=== PATIENT | male | born 1950 | race Caucasian/White ===

== ENCOUNTER 2017-06-17 17:17 | Emergency (ER) | payer OTHER, MEDICARE ==
[2017-06-17 17:50] VITALS: TEMP 98.4
[2017-06-17] MEDS ORDERED: Tetanus/Diphtheria Toxoids 0.5 ml Syringe IM ONE ×2 (18:20→18:49)
--- NOTE | 2017-06-17 18:39 | C.PDOC ---
History Of Present Illness 66 y/o male presents to ED for evaluation on left thumb laceration sustained with knife [employer]. Patient is on blood thinner and noticed bleeding unable to stop. Patient denies obvious deformity, weakness, sensory or vascular deficits to injured finger, or any other complaints at this time. Time Seen by Provider: 06/17/17 18:03 Chief Complaint (Nursing): Abnormal Skin Integrity History Per: Patient History/Exam Limitations: no limitations Onset/Duration Of Symptoms: Hrs Current Symptoms Are (Timing): Still Present Past Medical History Reviewed: Historical Data, Nursing Documentation, Vital Signs Vital Signs: Last Vital Signs Temp 98.4 F 06/17/17 17:48 Pulse 75 06/17/17 18:55 Resp 18 06/17/17 18:55 BP 148/75 06/17/17 18:55 Pulse Ox 97 06/17/17 18:55 - Medical History PMH: Diabetes, HTN, Chronic Kidney Disease Surgical History: Coronary Stent (x2) - [facility] Procedures CORONAR ARTERIOGR-2 CATH (07/23/03) LEFT HEART CARDIAC CATH (07/23/03) LT HEART ANGIOCARDIOGRAM (07/23/03) Family History: States: No Known Family Hx - Social History Hx Alcohol Use: No Hx Substance Use: No - Immunization History Hx Tetanus Toxoid Vaccination: No Hx Influenza Vaccination: No Hx Pneumococcal Vaccination: No Review Of Systems Except As Marked, All Systems Reviewed And Found Negative. Constitutional: Negative for: Fever, Chills Musculoskeletal: Positive for: Hand Pain Skin: Negative for: Rash Neurological: Negative for: Weakness, Numbness Physical Exam - Physical Exam Appears: Well, Non-toxic, No Acute Distress Skin: Normal Color, Warm, Dry, No Rash Extremity: Normal ROM (Left hand), No Tenderness, Capillary Refill (<2 seconds) , Other (superficial laceration on tip of left thumb, no bleeding noted. No defomrity. FAROM, no neurovascular deficits.) Extremity: Bilateral: Normal ROM Pulses: Left Radial: Normal, Right Radial: Normal Neurological/Psych: Oriented x3, Normal Speech, Normal Motor, Normal Sensation, Normal Reflexes ED Course And Treatment O2 Sat by Pulse Oximetry: 99 (RA) Pulse Ox Interpretation: Normal Progress Note: On re-evaluation, pt is afebrile, hemodynamicaly stable. non- toxic. left hand: superificial laceration repaired with skin adhesive, no wound bleeding. FAROM, no neurovascular deficits. tetanus given. Pt advised on wound care. ref. to f/u with PMD in 2 days for re-eavl. return if any new changes. Laceration - Laceration Repair Left thumb Wound Length (In cm): 1cm Description Of Wound: Linear Wound Examination: Irrigated With Saline, No FB With Wound Exploration, No Tendon Injury With Wound Exploration Wound Closure: Steri Strips, Skin Glue Wound Complexity: Simple Disposition Counseled Patient/Family Regarding: Diagnosis, Need For Followup, Rx Given - Disposition Referrals: [facility] [Outside] Disposition: HOME/ ROUTINE Disposition Time: 18:10 Condition: STABLE Additional Instructions: KEEP WOUND CLEAN, DRY FOR 2-3 DAYS fOLLOW UP WITH PMD IN 2 DAYS FOR RE-EVALUATION. Instructions: Finger Laceration (ED), Skin Adhesive Care (ED) Forms: [employer] (Swedish) - Clinical Impression Clinical Impression: Laceration - Scribe Statement The provider has reviewed the documentation as recorded by the Peter Staton All medical record entries made by the Sofiyaiblj were at my direction and personally dictated by me. I have reviewed the chart and agree that the record accurately reflects my personal performance of the history, physical exam, medical decision making, and the department course for this patient. I have also personally directed, reviewed, and agree with the discharge instructions and disposition.
[2017-06-17 18:55] VITALS: BP 148/75; PULSE 75; RESP 18
[2017-06-17 19:44] VITALS: O2SAT 99
== END 2017-06-17 18:55 | disposition home or self-care (01) ==
LOC: C.ER 17:17
DX: S61.012A Laceration without foreign body of left thumb without damage to nail, initial encounter (principal); W26.0XXA Contact with knife, initial encounter; Y93.9 Activity, unspecified; Y92.009 Unspecified place in unspecified non-institutional (private) residence as the place of occurrence of the external cause

== ENCOUNTER 2017-09-20 02:22 | Inpatient (IN) | payer OTHER, MEDICARE ==
--- NOTE | 2017-09-20 02:38 | C.PDOC ---
History Of Present Illness pt presents with worsening dyspnea over the last 3 days, especially tonight. Speaking in 3-4 word sentences . As per ems, pt had audible wheezing. Denies any chest pain, No f/c/n/v Time Seen by Provider: 09/20/17 02:37 Chief Complaint (Nursing): Respiratory Distress History Per: Patient History/Exam Limitations: no limitations Onset/Duration Of Symptoms: Hrs Current Symptoms Are (Timing): Worse Associated Symptoms: Dyspnea Preciptating Factors: None Severity: Severe Pain Scale Rating Of: 7 Recent travel outside of the [place]: No Additional History Per: Patient - Asthma History Medication Use: Never Rescue Medications: See Home Medication List Control Medications: See Home Medication List Past Medical History Reviewed: Historical Data, Nursing Documentation, Vital Signs Vital Signs: Last Vital Signs Temp 98.4 F 09/20/17 02:28 Pulse 70 09/20/17 05:46 Resp 20 09/20/17 05:46 BP 181/85 H 09/20/17 05:46 Pulse Ox 100 09/20/17 05:46 - Medical History PMH: Diabetes, HTN, Chronic Kidney Disease Surgical History: Coronary Stent (x2) - [facility] Procedures CORONAR ARTERIOGR-2 CATH (07/23/03) LEFT HEART CARDIAC CATH (07/23/03) LT HEART ANGIOCARDIOGRAM (07/23/03) Family History: States: No Known Family Hx - Social History Hx Alcohol Use: No Hx Substance Use: No - Immunization History Hx Tetanus Toxoid Vaccination: Yes Hx Influenza Vaccination: No Hx Pneumococcal Vaccination: No Review Of Systems Constitutional: Negative for: Fever, Chills Eyes: Negative for: Vision Change ENT: Negative for: Throat Pain Cardiovascular: Negative for: Chest Pain, Palpitations Respiratory: Positive for: Shortness of Breath, Wheezing Gastrointestinal: Negative for: Nausea, Vomiting, Abdominal Pain Genitourinary: Negative for: Dysuria Musculoskeletal: Negative for: Back Pain Skin: Negative for: Rash Neurological: Negative for: Weakness Psych: Negative for: Anxiety Physical Exam - Physical Exam Appears: Non-toxic, In Acute Distress Skin: Warm, Dry Head: Normacephalic Eye(s): bilateral: Normal Inspection Oral Mucosa: Moist Neck: Trachea Midline, Supple Chest: Symmetrical Cardiovascular: Rhythm Regular Respiratory: Decreased Breath Sounds, Rales, No Rhonchi, Wheezing Gastrointestinal/Abdominal: Soft, No Tenderness, Distention, No Rebound Back: No CVA Tenderness Extremity: No Tenderness, Pedal Edema Extremity: Bilateral: Atraumatic, Normal Color And Temperature, Normal ROM Pulses: Left Dorsalis Pedis: Normal, Right Dorsalis Pedis: Normal Neurological/Psych: Oriented x3, Normal Speech, Normal Cognition Gait: Steady ED Course And Treatment - Laboratory Results Result Diagrams: 09/20/17 03:07 09/20/17 03:07 ECG: Interpreted By Me, Viewed By Me ECG Rhythm: Sinus Rhythm (64), 1st Degree HB, Nonspecific Changes (old inf mi) O2 Sat by Pulse Oximetry: 96 Pulse Ox Interpretation: Normal - Radiology CXR: Interpreted by Me, Viewed By Me CXR Interpretation: Yes: Cardiomegaly, Other (chf). No: Infiltrates, Fracture Critical Care Time - Critical Care Note Total Time (in mins): 30 Documented critical care: time excludes all time spent performing seperately billable procedures. Disposition Discussed With : Alexandru Dimas Comment: accepted the pt on his service and took over the care at5:30 AM Doctor Will See Patient In The: ED Counseled Patient/Family Regarding: Studies Performed, Diagnosis - Disposition Disposition: HOSPITALIZED Disposition Time: 02:38 Condition: FAIR Forms: [employer] (Ukrainian) - POA Present On Arrival: Poor Glycemic Control - Clinical Impression Clinical Impression: Dyspnea, Congestive heart failure Decision To Admit - Pt Status Changed To: Hospital Disposition Of: Inpatient - Admit Certification Admit to Inpatient:: After my assessment, the patient will require hospitalization for at least two midnights. This is because of the severity of symptoms shown, intensity of services needed, and/or the medical risk in this patient being treated as an outpatient. - InPatient: Physician Admission Certification:: After my assessment, the patient will require hospitalization for at least two midnights. This is because of the severity of symptoms shown, intensity of services needed, and/or the medical risk in this patient being treated as an outpatient. - . Bed Request Type: Telemetry Admitting Physician: Alexandru Dimas Patient Diagnosis: Dyspnea, Congestive heart failure
[2017-09-20] MEDS ORDERED: Albuterol-Ipratrop 3 mg / 0.5 (3 ml) UD ONE (02:58)
[2017-09-20] MEDS: Albuterol-Ipratrop 3 mg / 0.5 (3 ml) UD IH SCH ×3 (03:00→03:31)
[2017-09-20 03:13] LABS: BASO % 0.6 % (0.0-2.0); EOS # 0.3 K/uL (0.0-0.7); EOS % 4.6 % (0.0-4.0); HEMATOCRIT 31.2 % (35.0-51.0); LYMPH % 14.7 % (20.0-40.0); MEAN CELL VOLUME 90.1 fL (80.0-94.0); MEAN CORPUSCULAR HEMOGLOBIN 30.3 pg (27.0-31.0); MEAN CORPUSCULAR HGB CONC 33.6 g/dL (33.0-37.0); MEAN PLATELET VOLUME 9.1 fL (7.2-11.7); MONO # 0.7 K/uL (0.0-0.8); MONO % 11.2 % (0.0-10.0); RED CELL DISTRIBUTION WIDTH 14.3 % (11.5-14.5); WHITE BLOOD COUNT 6.6 K/uL (4.8-10.8)
[2017-09-20 03:25] LABS: ABG ALLEN TEST POS; ARTERIAL BLOOD GAS MODE BiPAP; DRAW SITE RR
[2017-09-20 03:30] LABS: ALB/GLOB RATIO 1.3 (1.0-2.1); ALKALINE PHOSPHATASE 51 U/L (38-126); ALT/SGPT 45 U/L (21-72); AST/SGOT 52 U/L (17-59); BILIRUBIN,TOTAL 0.7 mg/dL (0.2-1.3); BLOOD UREA NITROGEN 53 mg/dL (9-20); CALCIUM 8.6 mg/dl (8.6-10.4); CARBON DIOXIDE 25 mmol/L (22-30); CHLORIDE 108 mmol/L (98-107); GFR AFRICAN-AMERICAN 30; GLUCOSE,RANDOM 143 mg/dL (75-110); POTASSIUM 4.2 mmol/L (3.6-5.2); SODIUM 141 mmol/L (132-148); TOTAL PROTEIN 6.7 g/dL (6.3-8.3)
--- NOTE | 2017-09-20 09:24 | CP.PCM.CON ---
History of Present Illness - History of Present Illness History of Present Illness: pt is seen and examined, full consult is dictated # [id number] 1. ckd-3 , most likely sec to DM nephropathy, can't r/o htn nephrosclerosis 2. Sob, sec to chf and fluid over load 3. htn 4. r/o candelaria 5. dm, under control increase lasix 80 mg iv bid restrict fluids to 100 ml/day for now check echo for lv EF bmp in am check pth intact level Past Patient History - Past Social History Smoking Status: Former Smoker - CARDIAC Hx Hypertension: Yes - RENAL Hx Chronic Kidney Disease: Yes - ENDOCRINE/METABOLIC Hx Endocrine Disorders: Yes Hx Diabetes Mellitus Type 2: Yes - PSYCHIATRIC Hx Substance Use: No - SURGICAL HISTORY Hx Coronary Stent: Yes (x2) - ANESTHESIA Hx Anesthesia: Yes Hx Anesthesia Reactions: No Meds Allergies/Adverse Reactions: Allergies Allergy/AdvReac Type Severity Reaction Status Date / Time No Known Allergies Allergy Verified 09/20/17 02:33 - Medications Medications: Current Medications Amlodipine Besylate (Norvasc) 5 mg PO DAILY [facility] Carvedilol (Coreg) 25 mg PO DAILY [facility] Chlorthalidone (Hygroton) 25 mg PO DAILY [facility] Clopidogrel Bisulfate (Plavix) 75 mg PO DAILY [facility] Furosemide (Lasix) 40 mg IVP DAILY [facility] Heparin Sodium (Porcine) (Heparin) 5,000 units SC Q12 [facility] Heparin Sodium (Porcine) (Heparin) 5,000 units SC Q8 [facility] Home Med (Cholecalciferol (Vitamin D3) [Vitamin D3]) 50,000 unit PO WM [facility] Home Med (Ezetimibe/Simvastatin [Vytorin 10-40 Mg Tablet]) 1 tab PO DAILY [facility] Home Med (Fenofibrate [Triglide]) 160 mg PO DAILY [facility] Home Med (Omeprazole [Omeprazole]) 20 mg PO DAILY [facility] Home Med (Valsartan [Valsartan]) 320 mg PO DAILY [facility] Insulin Glargine (Lantus) 22 unit SC BID [facility] Sitagliptin Phosphate (Januvia) 50 mg PO DAILY [facility] Results - Vital Signs Recent Vital Signs: Last Vital Signs Temp 98.4 F 09/20/17 02:28 Pulse 72 09/20/17 09:12 Resp 13 09/20/17 06:27 BP 164/68 H 09/20/17 09:12 Pulse Ox 100 09/20/17 06:27 - Labs Result Diagrams: 09/20/17 03:07 09/20/17 11:17 Labs: Laboratory Results - last 24 hr 09/20/17 09/20/17 09/20/17 03:07 03:07 03:07 WBC 6.6 RBC 3.46 L Hgb 10.5 L Hct 31.2 L MCV 90.1 MCH 30.3 MCHC 33.6 RDW 14.3 Plt Count 169 MPV 9.1 Neut % (Auto) 68.9 Lymph % (Auto) 14.7 L Hardeman % (Auto) 11.2 H Eos % (Auto) 4.6 H Baso % (Auto) 0.6 Neut # 4.6 Lymph # 1.0 Hardeman # 0.7 Eos # 0.3 Baso # 0.0 PT 11.2 INR 1.0 APTT 26 Puncture Site pCO2 pO2 HCO3 ABG pH ABG Total CO2 ABG O2 Saturation ABG Base Excess Miguel Angel Test ABG Potassium A-a O2 Difference Respiratory Index Glucose Lactate Vent Mode FiO2 Inspiratory BiPAP Expiratory BiPAP Sodium 141 Potassium 4.2 Chloride 108 H Carbon Dioxide 25 Anion Gap 13 BUN 53 H Creatinine 2.6 H Est GFR ( Amer) 30 Est GFR (Non-Af Amer) 25 Random Glucose 143 H Calcium 8.6 Total Bilirubin 0.7 AST 52 ALT 45 Alkaline Phosphatase 51 Troponin I 0.0440 NT-Pro-B Natriuret Pep 2320 H Total Protein 6.7 Albumin 3.8 Globulin 2.9 Albumin/Globulin Ratio 1.3 Arterial Blood Potassium Serum Ketones Negative 09/20/17 03:20 WBC RBC Hgb Hct MCV MCH MCHC RDW Plt Count MPV Neut % (Auto) Lymph % (Auto) Hardeman % (Auto) Eos % (Auto) Baso % (Auto) Neut # Lymph # Hardeman # Eos # Baso # PT INR APTT Puncture Site Rr pCO2 47 H pO2 286 H HCO3 25.5 ABG pH 7.36 ABG Total CO2 28.0 ABG O2 Saturation 99.7 H ABG Base Excess 0.6 Miguel Angel Test Pos ABG Potassium 4.8 A-a O2 Difference 12.0 Respiratory Index 0 Glucose 155 H Lactate 0.6 L Vent Mode Bipap FiO2 50.0 Inspiratory BiPAP 12 Expiratory BiPAP 5 Sodium 145.0 Potassium Chloride 119.0 H Carbon Dioxide Anion Gap BUN Creatinine Est GFR ( Amer) Est GFR (Non-Af Amer) Random Glucose Calcium Total Bilirubin AST ALT Alkaline Phosphatase Troponin I NT-Pro-B Natriuret Pep Total Protein Albumin Globulin Albumin/Globulin Ratio Arterial Blood Potassium 4.8 Serum Ketones
--- NOTE | 2017-09-20 09:29 | CP.PCM.HP ---
History of Present Illness - History of Present Illness History of Present Illness: c/o SOB HPI: 66 yrs old male with HTN, DM, CAD s/p stent, CRI came to ED with increasing sob for almost one week duration. Unable to walk now more than half block, unable to claim, increasing leg swelling. some wt gain noted. for 4 days he not able to sleep well and waking up and unable to lye flat. orthopnea and PND noted. he also c/o some cough and mild wheezing and took antibiotic and cough meds. Now he has no cough and no wheezing no fever noted Pt seen by cardiology 3 months ago, he had stress test 2 yrs ago. also has some renal failure being seen by Nephro Present on Admission - Present on Admission Any Indicators Present on Admission: No History of DVT/PE: No History of Uncontrolled Diabetes: No Urinary Catheter: No Decubitus Ulcer Present: No Review of Systems - Review of Systems All systems: reviewed and no additional remarkable complaints except - Constitutional Constitutional: Fatigue, Snoring, Weight Gain, Weakness - Cardiovascular Cardiovascular: Dyspnea, Dyspnea on Exertion, Edema, Leg Edema, Paroxysmal Nocturnal Dyspnea - Respiratory Respiratory: Dyspnea on Exertion, Snoring - Genitourinary Genitourinary: Other Additional comments: less urine out put - Reproductive: Male Reproductive:Male: As Per HPI - Musculoskeletal Musculoskeletal: As Per HPI - Integumentary Integumentary: As Per HPI - Neurological Neurological: Other Past Patient History - Past Social History Smoking Status: Former Smoker - CARDIAC Hx Hypertension: Yes - RENAL Hx Chronic Kidney Disease: Yes - ENDOCRINE/METABOLIC Hx Endocrine Disorders: Yes Hx Diabetes Mellitus Type 2: Yes - PSYCHIATRIC Hx Substance Use: No - SURGICAL HISTORY Hx Coronary Stent: Yes (x2) - ANESTHESIA Hx Anesthesia: Yes Hx Anesthesia Reactions: No Meds Allergies/Adverse Reactions: Allergies Allergy/AdvReac Type Severity Reaction Status Date / Time No Known Allergies Allergy Verified 09/20/17 02:33 Physical Exam - Head Exam Head Exam: ATRAUMATIC - Cardiovascular Exam Additional comments: mild wheezing noted mild congestion noted regular hs - GI/Abdominal Exam Additional comments: non tender abd Results - Vital Signs Recent Vital Signs: Last Vital Signs Temp 98.4 F 09/20/17 02:28 Pulse 72 09/20/17 09:12 Resp 13 09/20/17 06:27 BP 164/68 H 09/20/17 09:12 Pulse Ox 100 09/20/17 06:27 - Labs Result Diagrams: 09/20/17 03:07 09/20/17 03:07 Labs: Laboratory Results - last 24 hr 09/20/17 09/20/17 09/20/17 03:07 03:07 03:07 WBC 6.6 RBC 3.46 L Hgb 10.5 L Hct 31.2 L MCV 90.1 MCH 30.3 MCHC 33.6 RDW 14.3 Plt Count 169 MPV 9.1 Neut % (Auto) 68.9 Lymph % (Auto) 14.7 L Callahan % (Auto) 11.2 H Eos % (Auto) 4.6 H Baso % (Auto) 0.6 Neut # 4.6 Lymph # 1.0 Callahan # 0.7 Eos # 0.3 Baso # 0.0 PT 11.2 INR 1.0 APTT 26 Puncture Site pCO2 pO2 HCO3 ABG pH ABG Total CO2 ABG O2 Saturation ABG Base Excess Miguel Angel Test ABG Potassium A-a O2 Difference Respiratory Index Glucose Lactate Vent Mode FiO2 Inspiratory BiPAP Expiratory BiPAP Sodium 141 Potassium 4.2 Chloride 108 H Carbon Dioxide 25 Anion Gap 13 BUN 53 H Creatinine 2.6 H Est GFR ( Amer) 30 Est GFR (Non-Af Amer) 25 Random Glucose 143 H Calcium 8.6 Total Bilirubin 0.7 AST 52 ALT 45 Alkaline Phosphatase 51 Troponin I 0.0440 NT-Pro-B Natriuret Pep 2320 H Total Protein 6.7 Albumin 3.8 Globulin 2.9 Albumin/Globulin Ratio 1.3 Arterial Blood Potassium Serum Ketones Negative 09/20/17 03:20 WBC RBC Hgb Hct MCV MCH MCHC RDW Plt Count MPV Neut % (Auto) Lymph % (Auto) Callahan % (Auto) Eos % (Auto) Baso % (Auto) Neut # Lymph # Callahan # Eos # Baso # PT INR APTT Puncture Site Rr pCO2 47 H pO2 286 H HCO3 25.5 ABG pH 7.36 ABG Total CO2 28.0 ABG O2 Saturation 99.7 H ABG Base Excess 0.6 Miguel Angel Test Pos ABG Potassium 4.8 A-a O2 Difference 12.0 Respiratory Index 0 Glucose 155 H Lactate 0.6 L Vent Mode Bipap FiO2 50.0 Inspiratory BiPAP 12 Expiratory BiPAP 5 Sodium 145.0 Potassium Chloride 119.0 H Carbon Dioxide Anion Gap BUN Creatinine Est GFR ( Amer) Est GFR (Non-Af Amer) Random Glucose Calcium Total Bilirubin AST ALT Alkaline Phosphatase Troponin I NT-Pro-B Natriuret Pep Total Protein Albumin Globulin Albumin/Globulin Ratio Arterial Blood Potassium 4.8 Serum Ketones Assessment & Plan (1) Heart failure, chronic, with acute decompensation Assessment and Plan: mostly pt with decom chf CAD will need lasix cardiac enzymes renal and cardilogy eval echo will need sleep eval Status: Acute (2) Chronic renal failure, stage 4 (severe) Assessment and Plan: renal consult Status: Acute (3) Pedal edema Status: Acute (4) Central sleep apnea Status: Acute (5) DM (diabetes mellitus) type I uncontrolled with renal manifestation Status: Acute
--- NOTE | 2017-09-20 10:11 | RAD ---
PROCEDURE: CHEST RADIOGRAPH, 1 VIEW HISTORY: SOB COMPARISON: Comparison made with prior chest radiograph . FINDINGS: A vague radiopaque tube seen overlying the right medial justina thorax which could be a right IJ Cordis. Clinical correlation recommended. LUNGS: Mild diffuse bilateral infiltrates consistent with pulmonary edema; rule out fluid overload or CHF. Mild bibasilar atelectasis and or developing alveolar-type infiltrates. Suspect small bilateral effusions. PLEURA: As above. No evidence of pneumothorax CARDIOVASCULAR: Cardiomegaly. OSSEOUS STRUCTURES: No significant abnormalities. VISUALIZED UPPER ABDOMEN: Normal. OTHER FINDINGS: None. IMPRESSION: Probable in situ right IJ Cordis. Pulmonary edema with bilateral lower lobe atelectasis and or infiltrates. Suspect small bilateral effusions. Findings could be due to fluid overload or CHF. Clinical correlation recommended.
[2017-09-20] MEDS: (Lantus) Insulin Glargine, Recombinant SC SCH ×2 (10:59→17:41)
[2017-09-20 11:59] LABS: TROPONIN I 0.065 ng/mL (0.00-0.120)
[2017-09-20 12:02] LABS: CALCIUM 8.3 mg/dl (8.6-10.4); POTASSIUM 4.4 mmol/L (3.6-5.2)
[2017-09-20] MEDS: (Novolin R) Insulin Human Regular 100 units/ml vial SC SCH ×3 (12:30→21:48)
--- NOTE | 2017-09-20 13:12 | VASCLAB ---
PROCEDURE: Upper Extremity Venous Duplex Exam HISTORY: dvt PRIORS: None. TECHNIQUE: Bilateral upper extremity, internal jugular, subclavian, axillary, brachial, ulnar, radial, basilic and upper cephalic veins were evaluated. Flow was assessed with color Doppler, compressibility, assessment of phasic flow and augmentation response. Report prepared by Van Benavides, JOSE, RVT FINDINGS: RIGHT: 1. Internal Jugular: 1.1. Compressibility - Fully compressible: Thrombus - None : Flow - Phasic: Augmentation -Normal: Reflux - None. 2. Subclavian: 2.1. Compressibility - Fully compressible: Thrombus - None : Flow - Phasic: Augmentation -Normal: Reflux - None. 3. Axillary: 3.1. Compressibility - Fully compressible: Thrombus - None : Flow - Phasic: Augmentation -Normal: Reflux - None. 4. Brachial: 4.1. Compressibility - Fully compressible: Thrombus - None: Flow - Phasic: Augmentation -Normal: Reflux - None. 5. Ulnar: 5.1. Compressibility - Fully compressible: Thrombus - None: Flow - Phasic: Augmentation -Normal: Reflux - None. 6. Radial: 6.1. Compressibility - Fully compressible: Thrombus - None: Flow - Phasic: Augmentation - Normal: Reflux - None. 7. Cephalic: 7.1. Compressibility - Fully compressible: Thrombus - None: Flow - Phasic: Augmentation -Normal: Reflux - None. 8. Basilic: 8.1. Compressibility - Fully compressible: Thrombus - None: Flow - Phasic: Augmentation -Normal: Reflux - None. LEFT: 1. Internal Jugular: 1.1. Compressibility - Fully compressible: Thrombus - None : Flow - Phasic: Augmentation -Normal: Reflux - None. 2. Subclavian: 2.1. Compressibility - Fully compressible: Thrombus - None : Flow - Phasic: Augmentation -Normal: Reflux - None. 3. Axillary: 3.1. Compressibility - Fully compressible: Thrombus - None : Flow - Phasic: Augmentation -Normal: Reflux - None. 4. Brachial: 4.1. Compressibility - Fully compressible: Thrombus - None: Flow - Phasic: Augmentation -Normal: Reflux - None. 5. Ulnar: 5.1. Compressibility - Fully compressible: Thrombus - None: Flow - Phasic: Augmentation -Normal: Reflux - None. 6. Radial: 6.1. Compressibility - Fully compressible: Thrombus - None: Flow - Phasic: Augmentation - Normal: Reflux - None. 7. Cephalic: 7.1. Compressibility - Fully compressible: Thrombus - None: Flow - Phasic: Augmentation -Normal: Reflux - None. 8. Basilic: 8.1. Compressibility - Fully compressible: Thrombus - None: Flow - Phasic: Augmentation -Normal: Reflux - None. OTHER FINDINGS: Right: None. Left: None. IMPRESSION: Right: No evidence of vein thrombosis of the right upper extremity with excellent venous flow. Normal valve function noted of the right side. Left: No evidence of vein thrombosis of the left upper extremity with excellent venous flow. Normal valve function noted of the left side.
[2017-09-20 16:58] VITALS: RESP 20
[2017-09-20 17:59] LABS: TROPONIN I 0.063 ng/mL (0.00-0.120)
[2017-09-20 18:15] LABS: RBC URINE < 1 /hpf (0-3); URINE BILIRUBIN NEGATIVE (NEGATIVE); URINE BLOOD NEGATIVE (NEGATIVE); URINE COLOR Colorless (YELLOW); URINE GLUCOSE (UA) NORMAL (Normal); URINE KETONE NEGATIVE (NEGATIVE); URINE LEUKOCYTE ESTERASE NEG Leu/uL (Negative); URINE PROTEIN 2+ mg/dL (NEGATIVE); URINE UROBILINOGEN NORMAL mg/dL (0.2-1.0); WBC URINE < 1 /hpf (0-5)
--- NOTE | 2017-09-21 02:38 | CON ---
RENAL CONSULTATION LOCATION: Room #663, bed A. REQUESTED BY: Alexandru Dimas MD REASON FOR CONSULTATION: Shortness of breath, chronic kidney disease for further evaluation. HISTORY OF PRESENT ILLNESS: Mr. Tubbs is a 66-year-old elderly obese [place] male with a past medical history significant for longstanding hypertension; diabetes; chronic kidney disease stage III with a baseline creatinine, about 2.5 to 3 proteinuria; hyperlipidemia; coronary artery disease, status post stents in the past; who was brought in by the family with chief complaints of worsening dyspnea for last 3 days. As per the patient, he was feeling short of breath for the last few days and not feeling well yesterday which that was and the family decided to bring him to the hospital last night and also had difficulty in speaking even 3 to 4 sentences at a time. As per the patient, he was feeling short of breath in the middle of the night while sleeping, suddenly he gets up and gasping for air and also complains of snoring. Denies any chest pain. Denies any palpitations. Denies any fever or cough. Denies any nausea, vomiting or diarrhea. The patient does complain of swelling for a long time, on Lasix at home. Dyspnea on exertion also present. PAST MEDICAL HISTORY: Significant for longstanding hypertension, diabetes, hyperlipidemia, proteinuria, chronic kidney disease, coronary artery disease, status post fall and injury to the right knee. PAST SURGICAL HISTORY: Status post coronary stents and status post cardiac cath on 07/23/2003. ALLERGIES: NO KNOWN DRUG ALLERGIES. SOCIAL HISTORY: No smoking, no alcohol, no drugs. FAMILY HISTORY: Not significant. The patient has very supportive family. 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 MEDICATIONS: His current medications include as follows: His home medications; amlodipine 5 mg p.o. daily, valsartan 325 mg p.o. daily, Januvia 50 mg daily, omeprazole 20 mg daily, Lantus 22 units subcu b.i.d., fenofibrate 160 mg p.o. daily, Vytorin 10 mg daily, Plavix 75 mg daily, vitamin D3 50,000 units q. weekly, chlorthalidone 25 mg p.o. daily and Coreg 25 mg p.o. daily. His current medications in the hospital include; Coreg 25 mg p.o. daily, losartan 100 mg daily, Crestor 10 mg at bedtime, vitamin D 50,000 units q. weekly, subcu heparin, chlorthalidone 25 mg p.o. daily, Januvia 50 mg daily, Lantus 22 units subcu b.i.d., Lasix 80 mg IV b.i.d., Norvasc 5 mg daily, Pepcid 20 mg daily, Plavix 75 mg daily, pneumococcal vaccine x1, TriCor 145 mg daily, and Zetia 10 mg p.o. daily. REVIEW OF SYSTEMS: Significant for dyspnea on exertion, PND, orthopnea, bilateral leg swelling. All other review systems reviewed and are negative except as mentioned. PHYSICAL EXAMINATION: VITAL SIGNS: Blood pressure 164/68, pulse 72, respirations about 20, temperature 97.9, saturation 99%. Height 5 feet 11 inches and weight is 270 pounds. GENERAL: Mr. Tubbs is a 66-year-old elderly, obese [place] male, well-built, well-nourished, mild respiratory distress. HEENT: Pupils normal, reactive to light and accommodation. Conjunctivae pink. Sclerae anicteric. Tongue is moist, trachea is midline. LUNGS: Symmetric on both sides. Bilateral breath sounds present. Occasional basal crackles present. CARDIOVASCULAR SYSTEM: [place] at the fifth intercostal space, midclavicular line. S1 and S2 audible. No murmur or gallop. ABDOMEN: Normal in appearance, soft, tympanic. No guarding, no rigidity. No hepatosplenomegaly. CENTRAL NERVOUS SYSTEM: The patient is alert, awake, oriented x3. Nonfocal neuro examination. Cranial nerves II through XII grossly intact. Sensory and motor system is grossly within normal limits. EXTREMITIES: No cyanosis, no clubbing. The patient has 2+ edema in both lower extremities. LABORATORY DATA: His current laboratory data include as follows; as of 09/20/2017, WBC 6.6, hemoglobin 10.5, hematocrit is 31.2, platelets 169. PT 11.2, PTT 26. ABG; pH of 7.36, pCO2 of 47, pO2 of 286, bicarb is 25.5, saturation 99.7. On BiPAP, FiO2 of 50%, inspiratory rate is 12 and expiratory rate is 5. His sodium is 141, potassium 4.2, chloride 108, CO2 of 25, BUN 53, creatinine 2.6, glucose 143, calcium 8.6. Total bili 0.7, AST 52, ALT 45, alkaline phosphatase 51. Troponin 0.044, 0.061 and 0.063. The pro-BNP 2320. Total protein 6.7, albumin 3.8. Other laboratory data as of 09/20/2017, cholesterol is 106, triglyceride 134, LDL is 50, HDL is 28. His CPK level this morning 312 and 296. Urinalysis; colorless, clear, pH 5, specific gravity 1.008, protein 2+, glucose normal, ketones negative, blood negative, nitrites negative, bilirubin negative, urobilinogen normal, leukocyte esterase negative, wbc less than 1, rbc less than 1, epithelial cells less than 1. Serum ketones are negative. Hepatitis A antigen is negative. Hepatitis B surface antigen is negative. Hepatitis core antibody IgM is negative. Hep C antibody is negative. Other laboratory data; sodium 139, potassium 4.4, chloride 106, CO2 of 25, BUN 52, creatinine 2.4, glucose 187, hemoglobin A1c 6.4, calcium 8.3. Chest x-ray as of 09/20/2017, impression: Probably right IJ Cordis, pulmonary edema with bilateral lower lobe atelectasis and infiltrates, suspect small bilateral effusions, findings could be due to fluid overload or CHF. Clinical correlation recommended. ASSESSMENT AND PLAN: In summary, Mr. Tubbs is a 66-year-old elderly, obese [place] male with a history of longstanding hypertension, diabetes, hyperlipidemia, was admitted with shortness of breath, chronic kidney disease, dyspnea on exertion, paroxysmal nocturnal dyspnea, orthopnea and bilateral leg swelling. 1. Chronic kidney disease, stage III, most likely secondary to diabetic nephropathy, cannot rule out underlying hypertensive nephrosclerosis. 2. Hypertension, blood pressure is stable. Continue his current medications, Coreg and Norvasc. 3. Congestive heart failure with fluid overload. Continue hydrochlorothiazide 25 mg daily and also we will add Lasix 80 mg IV q.12 hours and restrict fluids to 1 L per day for now. 4. Rule out obstructive sleep apnea. Continue BiPAP as per Dr. Dimas. We will also check PTH intact level, consider echocardiogram for left ventricular ejection fraction and also rule out diastolic dysfunction. We will with you. Thank you for allowing me to participate in your patient's care. Harish Leong MD
[2017-09-21] MEDS: (Novolin R) Insulin Human Regular 100 units/ml vial SC SCH ×4 (07:48→21:48)
[2017-09-21 08:08] LABS: BASO % 0.6 % (0.0-2.0); EOS # 0.3 K/uL (0.0-0.7); EOS % 4.5 % (0.0-4.0); HEMATOCRIT 29.6 % (35.0-51.0); LYMPH % 15.8 % (20.0-40.0); MEAN CELL VOLUME 90.3 fL (80.0-94.0); MEAN CORPUSCULAR HEMOGLOBIN 29.8 pg (27.0-31.0); MEAN PLATELET VOLUME 8.6 fL (7.2-11.7); MONO # 0.6 K/uL (0.0-0.8); MONO % 10.1 % (0.0-10.0); RED CELL DISTRIBUTION WIDTH 13.6 % (11.5-14.5); WHITE BLOOD COUNT 6.1 K/uL (4.8-10.8)
--- NOTE | 2017-09-21 08:08 | CP.PCM.CON ---
History of Present Illness - History of Present Illness History of Present Illness: CARDIOLOGY CONSULT NOTE Reason for consult: CHF HPI: Patient is a 66 yo man with history of CAD s/p PCI in 06/2011; ischemic CM with last EF 40% in 2013; HTN; HL; DM; CKD; who presents with progressively worsening exertional SOB over the past few weeks. Associated with bilateral leg edema, orthopnea and PND. No chest pain, nausea, diaphoresis, palpitations , syncope or presyncope. He came to [facility]. EKG was unremarkable. CXR showed pulmonary edema. Cardiology is now consulted ROS: As above, otherwise negative PMH: As above Surgical Hx: PCI, no CABG SHx: + prior tobacco, no etoh, no drugs FHx: no premature CAD Past Patient History - Past Social History Smoking Status: Former Smoker - CARDIAC Hx Hypertension: Yes - RENAL Hx Chronic Kidney Disease: Yes - ENDOCRINE/METABOLIC Hx Endocrine Disorders: Yes Hx Diabetes Mellitus Type 2: Yes - MUSCULOSKELETAL/RHEUMATOLOGICAL Hx Falls: No - PSYCHIATRIC Hx Substance Use: No - SURGICAL HISTORY Hx Coronary Stent: Yes (x2) - ANESTHESIA Hx Anesthesia: Yes Hx Anesthesia Reactions: No Meds Allergies/Adverse Reactions: Allergies Allergy/AdvReac Type Severity Reaction Status Date / Time No Known Allergies Allergy Verified 09/20/17 02:33 - Medications Medications: Current Medications Amlodipine Besylate (Norvasc) 5 mg PO DAILY [facility] Last Admin: 09/20/17 10:56 Dose: 5 mg Carvedilol (Coreg) 25 mg PO DAILY [facility] Last Admin: 09/20/17 10:56 Dose: 25 mg Chlorthalidone (Hygroton) 25 mg PO DAILY [facility] Last Admin: 09/20/17 12:11 Dose: 25 mg Clopidogrel Bisulfate (Plavix) 75 mg PO DAILY [facility] Last Admin: 09/20/17 10:56 Dose: 75 mg Ezetimibe (Zetia) 10 mg PO DAILY [facility] Last Admin: 09/20/17 12:11 Dose: 10 mg Ergocalciferol (Drisdol 50,000 Intl Units Cap) 1 cap PO QWK [facility] Famotidine (Pepcid) 20 mg PO DAILY [facility] Last Admin: 09/20/17 10:56 Dose: 20 mg Fenofibrate (Tricor) 145 mg PO DAILY [facility] Furosemide (Lasix) 80 mg IVP BID [facility] Last Admin: 09/20/17 17:42 Dose: 80 mg Heparin Sodium (Porcine) (Heparin) 5,000 units SC Q8 [facility] Last Admin: 09/21/17 05:42 Dose: 5,000 units Insulin Glargine (Lantus) 22 unit SC BID [facility] Last Admin: 09/20/17 17:41 Dose: Not Given Insulin Human Regular (Novolin R) 0 unit SC ACHS [facility] PRN Reason: Protocol Last Admin: 09/21/17 07:48 Dose: Not Given Losartan Potassium (Cozaar) 100 mg PO DAILY [facility] Last Admin: 09/20/17 10:56 Dose: 100 mg Pneumococcal Polyvalent Vaccine (Pneumovax 23 Vaccine) 0.5 ml IM .ONCE ONE Stop: 09/24/17 10:01 Rosuvastatin Calcium (Crestor) 10 mg PO HS [facility] Last Admin: 09/20/17 21:45 Dose: 10 mg Sitagliptin Phosphate (Januvia) 50 mg PO DAILY [facility] Last Admin: 09/20/17 10:56 Dose: 50 mg Physical Exam - Constitutional Appears: Well - Head Exam Head Exam: ATRAUMATIC - ENT Exam ENT Exam: Mucous Membranes Moist - Respiratory Exam Additional comments: Mild bibasilar crackles - Cardiovascular Exam Cardiovascular Exam: REGULAR RHYTHM. absent: Gallop, Rubs, Systolic Murmur - GI/Abdominal Exam GI & Abdominal Exam: Soft. absent: Tenderness - Extremities Exam Extremities exam: Positive for: pedal edema Additional comments: Trace leg edema - Neurological Exam Neurological exam: Oriented x3 - Psychiatric Exam Psychiatric exam: Normal Mood Results - Vital Signs Recent Vital Signs: Last Vital Signs Temp 97.8 F 09/21/17 04:00 Pulse 65 09/21/17 05:10 Resp 20 09/21/17 04:00 BP 178/73 H 09/21/17 04:00 Pulse Ox 98 09/21/17 04:00 - Labs Result Diagrams: 09/21/17 08:02 09/21/17 08:02 Labs: Laboratory Results - last 24 hr 09/20/17 09/20/17 09/20/17 11:14 11:14 11:14 Sodium Potassium Chloride Carbon Dioxide Anion Gap BUN Creatinine Est GFR ( Amer) Est GFR (Non-Af Amer) POC Glucose (mg/dL) Random Glucose Hemoglobin A1c 6.4 Calcium Total Creatine Kinase 312 H CK-MB (Mass) 7.70 H Troponin I 0.0650 Triglycerides 134 Cholesterol 106 LDL Cholesterol Direct 50 HDL Cholesterol 28 L Urine Color Urine Clarity Urine pH Ur Specific Holt Urine Protein Urine Glucose (UA) Urine Ketones Urine Blood Urine Nitrate Urine Bilirubin Urine Urobilinogen Ur Leukocyte Esterase Urine WBC (Auto) Urine RBC (Auto) Ur Squamous Epith Cells Hepatitis A IgM Ab Negative Hep Bs Antigen Negative Hep B Core IgM Ab Negative Hepatitis C Antibody Negative 09/20/17 09/20/17 09/20/17 11:17 16:53 17:20 Sodium 139 Potassium 4.4 Chloride 106 Carbon Dioxide 25 Anion Gap 12 BUN 52 H Creatinine 2.4 H Est GFR ( Amer) 33 Est GFR (Non-Af Amer) 27 POC Glucose (mg/dL) 74 Random Glucose 187 H Hemoglobin A1c Calcium 8.3 L Total Creatine Kinase 296 H CK-MB (Mass) 7.33 H Troponin I 0.0630 Triglycerides Cholesterol LDL Cholesterol Direct HDL Cholesterol Urine Color Urine Clarity Urine pH Ur Specific Holt Urine Protein Urine Glucose (UA) Urine Ketones Urine Blood Urine Nitrate Urine Bilirubin Urine Urobilinogen Ur Leukocyte Esterase Urine WBC (Auto) Urine RBC (Auto) Ur Squamous Epith Cells Hepatitis A IgM Ab Hep Bs Antigen Hep B Core IgM Ab Hepatitis C Antibody 09/20/17 09/20/17 09/21/17 18:06 21:40 06:47 Sodium Potassium Chloride Carbon Dioxide Anion Gap BUN Creatinine Est GFR ( Amer) Est GFR (Non-Af Amer) POC Glucose (mg/dL) 144 H 111 H Random Glucose Hemoglobin A1c Calcium Total Creatine Kinase CK-MB (Mass) Troponin I Triglycerides Cholesterol LDL Cholesterol Direct HDL Cholesterol Urine Color Colorless Urine Clarity Clear Urine pH 5.0 Ur Specific Holt 1.008 Urine Protein 2+ H Urine Glucose (UA) Normal Urine Ketones Negative Urine Blood Negative Urine Nitrate Negative Urine Bilirubin Negative Urine Urobilinogen Normal Ur Leukocyte Esterase Neg Urine WBC (Auto) < 1 Urine RBC (Auto) < 1 Ur Squamous Epith Cells < 1 Hepatitis A IgM Ab Hep Bs Antigen Hep B Core IgM Ab Hepatitis C Antibody - EKG Data EKG comments: Sinus rhythm, prolonged ND, old anterior infarct, NSST's Assessment & Plan - Assessment and Plan (Free Text) Assessment: * Acute on chronic systolic HF * CAD s/p PCI in 06/2011 * Ischemic CM -- EF 35-40% on echo 11/24/17 (per my review) * HTN -- BP not well controlled * CKD Plan: * Cont IV lasix 80mg BID while closely monitoring renal function and I/O's * Increase carvedilol to 25mg BID for better BP control * Cont other cardiac meds
[2017-09-21 08:48] LABS: BILIRUBIN,TOTAL 0.7 mg/dL (0.2-1.3); CALCIUM 8.5 mg/dl (8.6-10.4); POTASSIUM 4.4 mmol/L (3.6-5.2)
[2017-09-21 08:51] LABS: ALB/GLOB RATIO 1.2 (1.0-2.1)
[2017-09-21] MEDS: (Lantus) Insulin Glargine, Recombinant SC SCH ×2 (10:48→17:41)
--- NOTE | 2017-09-21 16:17 | CARD ---
APPROVED REPORT EXAM: Two-dimensional and M-mode echocardiogram with Doppler and color Doppler. INDICATION Dyspnea Congestive Heart Failure RISK FACTORS Diabetes 2D DIMENSIONS IVSd1.1 (0.7-1.1cm)LVDd6.0 (3.9-5.9cm) PWd1.3 (0.7-1.1cm)LVDs4.9 (2.5-4.0cm) FS (%) 17.5 %LVEF (%)35.9 (>50%) M-Mode DIMENSIONS Left Atrium (MM)4.48 (2.5-4.0cm)Aortic Root3.79 (2.2-3.7cm) Aortic Cusp Exc.2.38 (1.5-2.0cm) Mitral Valve MV E Upkvvmdw461.3cm/sMV A Prcccqxm541.8cm/sE/A ratio1.2 TDI E/Lateral E'0.0E/Medial E'0.0 LEFT VENTRICLE The Left Ventricle is mildly dilated. There is mild concentric left ventricular hypertrophy. The systolic function is moderately impaired. Regional wall motion abnormalities noted. Tissue Doppler imaging reveals moderate left ventricular diastolic dysfunction. No left ventricle thrombus noted on this study. There is no ventricular septal defect visualized. There is no left ventricular aneurysm. There is no mass noted in the left ventricle. RIGHT VENTRICLE The right ventricle is normal size. There is normal right ventricular wall thickness. The right ventricular systolic function is normal. ATRIA The left atrium is mildly dilated. The right atrium size is normal. The interatrial septum is intact with no evidence for an atrial septal defect. AORTIC VALVE The aortic valve is normal in structure. No aortic regurgitation is present. There is no aortic valvular stenosis. There is no aortic valvular vegetation. MITRAL VALVE The mitral valve is normal in structure. There is no mitral valve stenosis. There is no mitral valve regurgitation noted. TRICUSPID VALVE The tricuspid valve is normal in structure. There is no tricuspid valve regurgitation noted. PULMONIC VALVE The pulmonary valve is normal in structure. There is no pulmonic valvular regurgitation. GREAT VESSELS The aortic root is normal in size. The ascending aorta is normal in size. The pulmonary artery is normal. The IVC is normal in size and collapses >50% with inspiration. PERICARDIAL EFFUSION There is no pericardial effusion. <Conclusion> The Left Ventricle is mildly dilated. There is mild concentric left ventricular hypertrophy. The systolic function is moderately impaired. Tissue Doppler imaging reveals moderate left ventricular diastolic dysfunction. The left atrium is mildly dilated. CAD WITH ISCHEMIC CARDIOMYOPATHY. LV EF IS 35%.
--- NOTE | 2017-09-21 18:35 | CP.PCM.PN ---
Subjective - Date & Time of Evaluation Date of Evaluation: 09/21/17 Time of Evaluation: 18:34 - Subjective Subjective: pt is seen and examined, follow up consult is dictated #[id number] Objective - Vital Signs/Intake and Output Vital Signs (last 24 hours): Temp Pulse Resp BP Pulse Ox 97.5 F L 65 20 153/79 H 97 09/21/17 16:00 09/21/17 16:00 09/21/17 16:00 09/21/17 17:41 09/21/17 16:00 Intake and Output: 09/21/17 09/21/17 06:59 18:59 Intake Total 800 Balance 800 - Medications Medications: Current Medications Amlodipine Besylate (Norvasc) 5 mg PO DAILY [facility] Last Admin: 09/21/17 10:47 Dose: 5 mg Carvedilol (Coreg) 25 mg PO BID [facility] Last Admin: 09/21/17 17:40 Dose: 25 mg Chlorthalidone (Hygroton) 25 mg PO DAILY [facility] Last Admin: 09/21/17 10:48 Dose: 25 mg Clopidogrel Bisulfate (Plavix) 75 mg PO DAILY [facility] Last Admin: 09/21/17 10:48 Dose: 75 mg Ezetimibe (Zetia) 10 mg PO DAILY [facility] Last Admin: 09/21/17 10:47 Dose: 10 mg Ergocalciferol (Drisdol 50,000 Intl Units Cap) 1 cap PO QWK [facility] Famotidine (Pepcid) 20 mg PO DAILY [facility] Last Admin: 09/21/17 10:46 Dose: 20 mg Fenofibrate (Tricor) 145 mg PO DAILY [facility] Last Admin: 09/21/17 10:47 Dose: 145 mg Furosemide (Lasix) 80 mg IVP BID [facility] Last Admin: 09/21/17 17:41 Dose: 80 mg Heparin Sodium (Porcine) (Heparin) 5,000 units SC Q8 [facility] Last Admin: 09/21/17 13:18 Dose: 5,000 units Insulin Glargine (Lantus) 22 unit SC BID [facility] Last Admin: 09/21/17 17:41 Dose: 22 units Insulin Human Regular (Novolin R) 0 unit SC ACHS [facility] PRN Reason: Protocol Last Admin: 09/21/17 17:41 Dose: 1 unit Losartan Potassium (Cozaar) 100 mg PO DAILY [facility] Last Admin: 09/21/17 10:47 Dose: 100 mg Pneumococcal Polyvalent Vaccine (Pneumovax 23 Vaccine) 0.5 ml IM .ONCE ONE Stop: 09/24/17 10:01 Rosuvastatin Calcium (Crestor) 10 mg PO HS [facility] Last Admin: 09/20/17 21:45 Dose: 10 mg Sitagliptin Phosphate (Januvia) 50 mg PO DAILY [facility] Last Admin: 09/21/17 10:46 Dose: 50 mg - Labs Labs: 09/21/17 08:02 09/21/17 08:02 PT 11.2 SECONDS (9.7-12.2) 09/20/17 03:07 INR 1.0 09/20/17 03:07 APTT 26 SECONDS (21-34) 09/20/17 03:07
--- NOTE | 2017-09-22 03:09 | PN ---
FOLLOWUP RENAL CONSULTATION LOCATION: Room #663, bed A. REQUESTED BY: Alexandru Dimas MD REASON FOR FOLLOWUP: Chronic kidney disease, stage III; proteuria; shortness of breath and for further evaluation. HISTORY OF PRESENT ILLNESS: Mr. Tubbs is a 66-year-old obese [place] male with a past medical history significant for longstanding hypertension, diabetes, hyperlipidemia, proteuria, chronic kidney disease, obstructive sleep apnea, coronary artery disease status post stents, who was admitted with the chief complaints of shortness of breath and dyspnea on exertion and PND, orthopnea and bilateral leg swelling for 2 weeks, which got worse and the patient family decided to bring him to the hospital for further evaluation. The patient was started on IV Lasix 80 mg b.i.d. and fluid restriction. The patient is feeling much better, not in distress, decreased leg swelling. The patient clams he slept very well with BiPAP last night. The patient is not in distress. PHYSICAL EXAMINATION: VITAL SIGNS: As follows: Blood pressure 153/79, pulse 65, respirations about 20, temperature 97.5, saturation 97%. Height 5 feet 11 inches and weight is 275 pounds. GENERAL: Mr. Tubbs is a 66-year-old elderly, obese [place] male, well built, well nourished, not in distress. HEENT: Pupils normal, reactive to light and accommodation. Conjunctivae pink. Sclerae anicteric. Tongue is moist, trachea is midline. LUNGS: Symmetric on both sides. Bilateral breath sounds present. Clear on auscultation. CARDIOVASCULAR: [place] at the fifth intercostal space, midclavicular line. S1 and S2 audible. No murmur or gallop. ABDOMEN: Normal in appearance, soft, tympanic. No guarding, no rigidity. No hepatosplenomegaly. Abdomen is protuberant. CENTRAL NERVOUS SYSTEM: The patient is alert, awake, oriented x3. Nonfocal. NEUROLOGIC: Cranial nerves II through XII grossly intact. Sensory and motor system is within normal limits. EXTREMITIES: No cyanosis, no clubbing. The patient has 1+ edema in both lower extremities. CURRENT MEDICATIONS: Include as follows: Coreg 25 mg p.o. b.i.d., Cozaar 100 mg daily, Crestor 10 mg at bedtime, vitamin D 50,000 units p.o. q. weekly, subcu heparin 5000 q.8 hours, chlorthalidone 25 mg p.o. daily, Januvia 50 mg daily, Lantus 22 units subcu b.i.d., Lasix 80 mg IV b.i.d., amlodipine 5 mg p.o. daily, Novolin R for sliding scale, Pepcid 20 mg daily, Plavix 75 mg daily, pneumococcal vaccine 0.5 mL x1, TriCor 145 mg p.o. daily, Zetia 10 mg p.o. daily. LABORATORY DATA: Include as follows; as of 09/21/2017, WBC 6.1, hemoglobin 9.8, hematocrit is 29.6, platelets 167. Sodium is 138, potassium 4.4, chloride 103, CO2 of 27, BUN 50, creatinine 2.4, glucose 130, calcium 8.5. Total bili 0.7, AST 44, ALT 37, alkaline phosphatase 448 and total protein 6. Albumin is 3.3. Hepatitis A and hepatitis C antibody IgM is negative. Hepatitis B surface antigen is negative. Hepatitis B core antibody IgM negative. Hep C antibody is negative. In summary, Mr. Tubbs is a 66-year-old obese [place] male with history of hypertension, diabetes, coronary artery disease, hyperlipidemia, chronic kidney disease, proteuria, possible obstructive sleep apnea, who was admitted with shortness of breath, dyspnea on exertion, bilateral leg swelling, paroxysmal nocturnal dyspnea and orthopnea. ASSESSMENT: 1. Chronic kidney disease, stage III; most likely secondary to diabetic nephropathy, cannot rule out an underlying hypertensive nephrosclerosis also. 2. Congestive heart failure. 3. Hypertension. 4. Diabetes. 5. Hyperlipidemia. Sugars and cholesterol are under control. PLAN: Continue Lasix 80 mg IV b.i.d., continue to monitor daily weights and also restrict the fluids 1 L per day for now and also low-sodium diet. Continue to follow with Dr. Dimas for possible CPAP in the house for possible obstructive sleep apnea and may need sleep studies. I will follow with you. Thank you for allowing me to participate in your patient's care. Harish Leong MD [facility] # [id number]
[2017-09-22] MEDS: (Novolin R) Insulin Human Regular 100 units/ml vial SC SCH ×4 (07:57→22:52)
[2017-09-22] MEDS: (Lantus) Insulin Glargine, Recombinant SC SCH ×2 (09:29→18:26)
[2017-09-22 11:24] LABS: CALCIUM 8.6 mg/dl (8.6-10.4); POTASSIUM 4.5 mmol/L (3.6-5.2)
--- NOTE | 2017-09-22 12:06 | CP.PCM.PN ---
Subjective - Date & Time of Evaluation Date of Evaluation: 09/21/17 Time of Evaluation: 12:03 - Subjective Subjective: pt feeling comfortable no chest pain ambulating eating ok leg swelling less seen by cardio no new symptoms using cpap at night Objective - Vital Signs/Intake and Output Vital Signs (last 24 hours): Temp Pulse Resp BP Pulse Ox 98.0 F 63 20 168/69 H 97 09/22/17 09:58 09/22/17 11:40 09/22/17 09:58 09/22/17 09:58 09/22/17 09:58 Intake and Output: no info - Medications Medications: Current Medications Amlodipine Besylate (Norvasc) 5 mg PO DAILY [facility] Last Admin: 09/22/17 09:29 Dose: 5 mg Carvedilol (Coreg) 25 mg PO BID [facility] Last Admin: 09/22/17 09:29 Dose: 25 mg Chlorthalidone (Hygroton) 25 mg PO DAILY [facility] Last Admin: 09/22/17 09:29 Dose: 25 mg Clopidogrel Bisulfate (Plavix) 75 mg PO DAILY [facility] Last Admin: 09/22/17 09:29 Dose: 75 mg Ezetimibe (Zetia) 10 mg PO DAILY [facility] Last Admin: 09/22/17 09:29 Dose: 10 mg Ergocalciferol (Drisdol 50,000 Intl Units Cap) 1 cap PO QWK [facility] Famotidine (Pepcid) 20 mg PO DAILY [facility] Last Admin: 09/22/17 09:29 Dose: 20 mg Fenofibrate (Tricor) 145 mg PO DAILY [facility] Last Admin: 09/22/17 09:29 Dose: 145 mg Furosemide (Lasix) 80 mg IVP BID [facility] Last Admin: 09/22/17 09:30 Dose: 80 mg Heparin Sodium (Porcine) (Heparin) 5,000 units SC Q8 [facility] Last Admin: 09/22/17 06:46 Dose: 5,000 units Insulin Glargine (Lantus) 22 unit SC BID [facility] Last Admin: 09/22/17 09:29 Dose: 22 units Insulin Human Regular (Novolin R) 0 unit SC ACHS [facility] PRN Reason: Protocol Last Admin: 09/22/17 07:57 Dose: Not Given Losartan Potassium (Cozaar) 100 mg PO DAILY [facility] Last Admin: 09/22/17 09:29 Dose: 100 mg Pneumococcal Polyvalent Vaccine (Pneumovax 23 Vaccine) 0.5 ml IM .ONCE ONE Stop: 09/24/17 10:01 Rosuvastatin Calcium (Crestor) 10 mg PO HS [facility] Last Admin: 09/21/17 21:41 Dose: 10 mg Sitagliptin Phosphate (Januvia) 50 mg PO DAILY [facility] Last Admin: 09/22/17 09:29 Dose: 50 mg - Labs Labs: 09/21/17 08:02 09/22/17 11:02 PT 11.2 SECONDS (9.7-12.2) 09/20/17 03:07 INR 1.0 09/20/17 03:07 APTT 26 SECONDS (21-34) 09/20/17 03:07 chest good air entry regular hs abd soft edema one plus alert oriented Assessment and Plan (1) Heart failure, chronic, with acute decompensation Assessment & Plan: improving on lasix dvt prophylaxis Status: Acute (2) Chronic renal failure, stage 4 (severe) Assessment & Plan: renal follow up Status: Acute (3) Pedal edema Status: Acute (4) Central sleep apnea Status: Acute (5) DM (diabetes mellitus) type I uncontrolled with renal manifestation Status: Acute
--- NOTE | 2017-09-22 12:11 | CP.PCM.PN ---
Subjective - Date & Time of Evaluation Date of Evaluation: 09/22/17 Time of Evaluation: 12:08 - Subjective Subjective: pt is feeling better leg swelling less ambulating eating ok no sob or no chest pain leg edema less wt not changed much pt is concerned about the event he is felling ok Objective - Vital Signs/Intake and Output Vital Signs (last 24 hours): Temp Pulse Resp BP Pulse Ox 98.0 F 63 20 168/69 H 97 09/22/17 09:58 09/22/17 11:40 09/22/17 09:58 09/22/17 09:58 09/22/17 09:58 - Medications Medications: Current Medications Amlodipine Besylate (Norvasc) 5 mg PO DAILY [facility] Last Admin: 09/22/17 09:29 Dose: 5 mg Carvedilol (Coreg) 25 mg PO BID [facility] Last Admin: 09/22/17 09:29 Dose: 25 mg Chlorthalidone (Hygroton) 25 mg PO DAILY [facility] Last Admin: 09/22/17 09:29 Dose: 25 mg Clopidogrel Bisulfate (Plavix) 75 mg PO DAILY [facility] Last Admin: 09/22/17 09:29 Dose: 75 mg Ezetimibe (Zetia) 10 mg PO DAILY [facility] Last Admin: 09/22/17 09:29 Dose: 10 mg Ergocalciferol (Drisdol 50,000 Intl Units Cap) 1 cap PO QWK [facility] Famotidine (Pepcid) 20 mg PO DAILY [facility] Last Admin: 09/22/17 09:29 Dose: 20 mg Fenofibrate (Tricor) 145 mg PO DAILY [facility] Last Admin: 09/22/17 09:29 Dose: 145 mg Furosemide (Lasix) 80 mg IVP BID [facility] Last Admin: 09/22/17 09:30 Dose: 80 mg Heparin Sodium (Porcine) (Heparin) 5,000 units SC Q8 [facility] Last Admin: 09/22/17 06:46 Dose: 5,000 units Insulin Glargine (Lantus) 22 unit SC BID [facility] Last Admin: 09/22/17 09:29 Dose: 22 units Insulin Human Regular (Novolin R) 0 unit SC ACHS [facility] PRN Reason: Protocol Last Admin: 09/22/17 07:57 Dose: Not Given Losartan Potassium (Cozaar) 100 mg PO DAILY [facility] Last Admin: 09/22/17 09:29 Dose: 100 mg Pneumococcal Polyvalent Vaccine (Pneumovax 23 Vaccine) 0.5 ml IM .ONCE ONE Stop: 09/24/17 10:01 Rosuvastatin Calcium (Crestor) 10 mg PO HS [facility] Last Admin: 09/21/17 21:41 Dose: 10 mg Sitagliptin Phosphate (Januvia) 50 mg PO DAILY [facility] Last Admin: 09/22/17 09:29 Dose: 50 mg Meds adjusted on IV lasix, high coreg - Labs Labs: 09/21/17 08:02 09/22/17 11:02 PT 11.2 SECONDS (9.7-12.2) 09/20/17 03:07 INR 1.0 09/20/17 03:07 APTT 26 SECONDS (21-34) 09/20/17 03:07 Venous doppler negative echo impaired EF 30-40% likely needs vigorous control of BP Assessment and Plan (1) Heart failure, chronic, with acute decompensation Assessment & Plan: Hypertensive heart disease with systolic failure renal failure Status: Acute (2) Chronic renal failure, stage 4 (severe) Assessment & Plan: renal failure acute on chronic on lasix will continue to monitor daily wt and cr Status: Acute (3) Pedal edema Status: Acute (4) Central sleep apnea Assessment & Plan: will need OP sleep study as op Status: Acute (5) DM (diabetes mellitus) type I uncontrolled with renal manifestation Status: Acute
[2017-09-23 07:17] LABS: BASO % 0.6 % (0.0-2.0); EOS # 0.2 K/uL (0.0-0.7); EOS % 4.4 % (0.0-4.0); HEMATOCRIT 30.4 % (35.0-51.0); LYMPH # 0.9 K/uL (1.0-4.3); LYMPH % 17.4 % (20.0-40.0); MEAN CELL VOLUME 88.8 fL (80.0-94.0); MEAN CORPUSCULAR HEMOGLOBIN 30.7 pg (27.0-31.0); MEAN CORPUSCULAR HGB CONC 34.6 g/dL (33.0-37.0); MEAN PLATELET VOLUME 8.7 fL (7.2-11.7); MONO # 0.8 K/uL (0.0-0.8); MONO % 13.9 % (0.0-10.0); RED CELL DISTRIBUTION WIDTH 13.5 % (11.5-14.5); WHITE BLOOD COUNT 5.5 K/uL (4.8-10.8)
[2017-09-23] MEDS: (Novolin R) Insulin Human Regular 100 units/ml vial SC SCH ×4 (07:23→21:21)
--- NOTE | 2017-09-23 08:12 | CP.PCM.PN ---
Subjective - Date & Time of Evaluation Date of Evaluation: 09/23/17 Time of Evaluation: 08:11 - Subjective Subjective: the patient is now sleeping. No pain. Leg swelling is improving. Today's labs pending. Does not have any major symptoms at this time. Objective - Vital Signs/Intake and Output Vital Signs (last 24 hours): Temp Pulse Resp BP Pulse Ox 97.3 F L 58 L 20 137/60 95 09/23/17 04:30 09/23/17 04:30 09/23/17 04:30 09/23/17 04:30 09/23/17 04:30 Intake and Output: 09/23/17 09/23/17 06:59 18:59 Intake Total 120 Balance 120 Vital signs reviewed No neck vein distention noted Chest good air entry bilaterally, no wheezing or rales noted CVS regular heart sound, no murmur noted Abdomen soft, nontender. Extremities no pedal edema [employer] alert awake oriented -3, no functional neurological deficit - Medications Medications: Current Medications Amlodipine Besylate (Norvasc) 5 mg PO DAILY [facility] Last Admin: 09/22/17 09:29 Dose: 5 mg Carvedilol (Coreg) 25 mg PO BID [facility] Last Admin: 09/22/17 18:25 Dose: 25 mg Chlorthalidone (Hygroton) 25 mg PO DAILY [facility] Last Admin: 09/22/17 09:29 Dose: 25 mg Clopidogrel Bisulfate (Plavix) 75 mg PO DAILY [facility] Last Admin: 09/22/17 09:29 Dose: 75 mg Ezetimibe (Zetia) 10 mg PO DAILY [facility] Last Admin: 09/22/17 09:29 Dose: 10 mg Ergocalciferol (Drisdol 50,000 Intl Units Cap) 1 cap PO QWK [facility] Famotidine (Pepcid) 20 mg PO DAILY [facility] Last Admin: 09/22/17 09:29 Dose: 20 mg Fenofibrate (Tricor) 145 mg PO DAILY [facility] Last Admin: 09/22/17 09:29 Dose: 145 mg Furosemide (Lasix) 40 mg PO DAILY [facility] Heparin Sodium (Porcine) (Heparin) 5,000 units SC Q8 [facility] Last Admin: 09/23/17 05:03 Dose: 5,000 units Insulin Glargine (Lantus) 22 unit SC BID [facility] Last Admin: 11/26/17 18:26 Dose: 22 units Insulin Human Regular (Novolin R) 0 unit SC ACHS [facility] PRN Reason: Protocol Last Admin: 09/23/17 07:23 Dose: Not Given Losartan Potassium (Cozaar) 100 mg PO DAILY [facility] Last Admin: 09/22/17 09:29 Dose: 100 mg Pneumococcal Polyvalent Vaccine (Pneumovax 23 Vaccine) 0.5 ml IM .ONCE ONE Stop: 09/24/17 10:01 Rosuvastatin Calcium (Crestor) 10 mg PO HS [facility] Last Admin: 09/22/17 22:05 Dose: 10 mg Sitagliptin Phosphate (Januvia) 50 mg PO DAILY [facility] Last Admin: 09/22/17 09:29 Dose: 50 mg - Labs Labs: 09/23/17 07:04 09/22/17 11:02 PT 11.2 SECONDS (9.7-12.2) 09/20/17 03:07 INR 1.0 09/20/17 03:07 APTT 26 SECONDS (21-34) 09/20/17 03:07 Assessment and Plan (1) Heart failure, chronic, with acute decompensation Assessment & Plan: decompensated heart failure. Patient also has worsening renal failure. Diabetic-related complication. Pending cardiology, nephrology evaluation and plan, and we will follow Status: Acute (2) Chronic renal failure, stage 4 (severe) Status: Acute (3) Pedal edema Status: Acute (4) Central sleep apnea Assessment & Plan: patient will need outpatient sleep study Status: Acute (5) DM (diabetes mellitus) type I uncontrolled with renal manifestation Status: Acute
[2017-09-23 08:52] LABS: ALB/GLOB RATIO 1.2 (1.0-2.1); BILIRUBIN,TOTAL 0.8 mg/dL (0.2-1.3); CALCIUM 8.7 mg/dl (8.6-10.4); POTASSIUM 4.1 mmol/L (3.6-5.2); TOTAL PROTEIN 6.2 g/dL (6.3-8.3)
[2017-09-23] MEDS: (Lantus) Insulin Glargine, Recombinant SC SCH ×2 (09:04→17:41)
--- NOTE | 2017-09-23 09:31 | CARD ---
APPROVED REPORT EKG Measurement Heart [id number] CT 270P-6 [id number] <Conclusion> Sinus rhythm with 1st degree AV block Left posterior fascicular block Inferior infarct, age undetermined Anteroseptal infarct, age undetermined Abnormal ECG
--- NOTE | 2017-09-23 09:35 | CARD ---
APPROVED REPORT EKG Measurement Heart [id number] [id number] <Conclusion> Sinus rhythm with 1st degree AV block Low voltage QRS Inferior infarct, age undetermined Cannot rule out Anteroseptal infarct, age undetermined Abnormal ECG
--- NOTE | 2017-09-23 09:52 | CP.PCM.PN ---
Subjective - Date & Time of Evaluation Date of Evaluation: 09/23/17 Time of Evaluation: 09:47 - Subjective Subjective: Pt feels much better, getting flu shot. Objective - Vital Signs/Intake and Output Vital Signs (last 24 hours): Temp Pulse Resp BP Pulse Ox 97.3 F L 63 20 149/62 95 09/23/17 04:30 09/23/17 07:00 09/23/17 04:30 09/23/17 09:06 09/23/17 04:30 Intake and Output: 09/23/17 09/23/17 06:59 18:59 Intake Total 120 Balance 120 - Medications Medications: Current Medications Amlodipine Besylate (Norvasc) 5 mg PO DAILY [facility] Last Admin: 09/23/17 09:05 Dose: 5 mg Carvedilol (Coreg) 25 mg PO BID [facility] Last Admin: 09/23/17 09:06 Dose: 25 mg Chlorthalidone (Hygroton) 25 mg PO DAILY [facility] Last Admin: 09/23/17 09:05 Dose: 25 mg Clopidogrel Bisulfate (Plavix) 75 mg PO DAILY [facility] Last Admin: 09/23/17 09:04 Dose: 75 mg Ezetimibe (Zetia) 10 mg PO DAILY [facility] Last Admin: 09/23/17 09:06 Dose: 10 mg Ergocalciferol (Drisdol 50,000 Intl Units Cap) 1 cap PO QWK [facility] Last Admin: 09/23/17 09:10 Dose: 1 cap Famotidine (Pepcid) 20 mg PO DAILY [facility] Last Admin: 09/23/17 09:06 Dose: 20 mg Fenofibrate (Tricor) 145 mg PO DAILY [facility] Last Admin: 09/23/17 09:06 Dose: 145 mg Furosemide (Lasix) 40 mg PO DAILY [facility] Last Admin: 09/23/17 09:06 Dose: 40 mg Heparin Sodium (Porcine) (Heparin) 5,000 units SC Q8 [facility] Last Admin: 09/23/17 05:03 Dose: 5,000 units Insulin Glargine (Lantus) 22 unit SC BID [facility] Last Admin: 09/23/17 09:04 Dose: 22 units Insulin Human Regular (Novolin R) 0 unit SC ACHS [facility] PRN Reason: Protocol Last Admin: 09/23/17 07:23 Dose: Not Given Losartan Potassium (Cozaar) 100 mg PO DAILY [facility] Last Admin: 09/23/17 09:05 Dose: 100 mg Pneumococcal Polyvalent Vaccine (Pneumovax 23 Vaccine) 0.5 ml IM .ONCE ONE Stop: 09/24/17 10:01 Rosuvastatin Calcium (Crestor) 10 mg PO HS [facility] Last Admin: 09/22/17 22:05 Dose: 10 mg Sitagliptin Phosphate (Januvia) 50 mg PO DAILY [facility] Last Admin: 09/23/17 09:06 Dose: 50 mg - Labs Labs: 09/23/17 07:04 09/23/17 07:04 PT 11.2 SECONDS (9.7-12.2) 09/20/17 03:07 INR 1.0 09/20/17 03:07 APTT 26 SECONDS (21-34) 09/20/17 03:07 - Constitutional Appears: Well - Head Exam Head Exam: NORMAL INSPECTION - Eye Exam Eye Exam: Normal appearance - ENT Exam ENT Exam: Mucous Membranes Moist - Respiratory Exam Respiratory Exam: Clear to Ausculation Bilateral - Cardiovascular Exam Cardiovascular Exam: REGULAR RHYTHM - GI/Abdominal Exam GI & Abdominal Exam: Normal Bowel Sounds - Exam Bimanual exam: NORMAL BIMANUAL EXAM - Back Exam Back Exam: NORMAL INSPECTION - Neurological Exam Neurological Exam: Alert, Awake, Normal Gait, Oriented x3 - Psychiatric Exam Psychiatric exam: Normal Affect - Skin Skin Exam: Normal Color Assessment and Plan - Assessment and Plan (Free Text) Assessment: 1. Mild chf: LV EF, moderately reduced, is unchanged from previous echo. Pt had a nuclear stress test , outpatient, : some non-transmural scar, only minimal IL ischemia. 2. For many years, pt has been told that his BP is high, pt argues it was normal outside the office. He has been resistant to take additional meds. Cr is about the same. Pt has also not lost weight, and family memebers say that he does not exercise and he has a poor diet. 3. I will add hydralazine: IF BP does not improve, will consider minoxidil. Would not add clonidine as pt already has a first degree AV block on coreg.
[2017-09-23] MEDS ORDERED: Influenza Vaccine 60 mcg/0.5 mL SYR (4YR UP) IM ONE (10:00)
[2017-09-23] MEDS ORDERED: Ergocalciferol 50,000 Intl Units Cap PO SCH (10:00)
--- NOTE | 2017-09-23 19:22 | CP.PCM.PN ---
Subjective - Date & Time of Evaluation Date of Evaluation: 09/23/17 Time of Evaluation: 19:21 - Subjective Subjective: pt is seen and examined, follow up consult is dictated #[id number] Objective - Vital Signs/Intake and Output Vital Signs (last 24 hours): Temp Pulse Resp BP Pulse Ox 98.0 F 65 20 155/73 H 99 09/23/17 17:46 09/23/17 17:46 09/23/17 17:46 09/23/17 17:46 09/23/17 17:46 Intake and Output: 09/23/17 09/24/17 18:59 06:59 Intake Total 120 Balance 120 - Medications Medications: Current Medications Amlodipine Besylate (Norvasc) 5 mg PO DAILY [facility] Last Admin: 09/23/17 09:05 Dose: 5 mg Carvedilol (Coreg) 25 mg PO BID [facility] Last Admin: 09/23/17 17:41 Dose: 25 mg Chlorthalidone (Hygroton) 25 mg PO DAILY [facility] Last Admin: 09/23/17 09:05 Dose: 25 mg Clopidogrel Bisulfate (Plavix) 75 mg PO DAILY [facility] Last Admin: 09/23/17 09:04 Dose: 75 mg Ezetimibe (Zetia) 10 mg PO DAILY [facility] Last Admin: 09/23/17 09:06 Dose: 10 mg Ergocalciferol (Drisdol 50,000 Intl Units Cap) 1 cap PO QWK [facility] Last Admin: 09/23/17 09:10 Dose: 1 cap Famotidine (Pepcid) 20 mg PO DAILY [facility] Last Admin: 09/23/17 09:06 Dose: 20 mg Fenofibrate (Tricor) 145 mg PO DAILY [facility] Last Admin: 09/23/17 09:06 Dose: 145 mg Furosemide (Lasix) 40 mg PO DAILY [facility] Last Admin: 09/23/17 09:06 Dose: 40 mg Heparin Sodium (Porcine) (Heparin) 5,000 units SC Q8 [facility] Last Admin: 09/23/17 13:46 Dose: 5,000 units Insulin Glargine (Lantus) 22 unit SC BID [facility] Last Admin: 09/23/17 17:41 Dose: 22 units Insulin Human Regular (Novolin R) 0 unit SC ACHS [facility] PRN Reason: Protocol Last Admin: 09/23/17 17:49 Dose: 2 unit Losartan Potassium (Cozaar) 100 mg PO DAILY [facility] Last Admin: 09/23/17 09:05 Dose: 100 mg Pneumococcal Polyvalent Vaccine (Pneumovax 23 Vaccine) 0.5 ml IM .ONCE ONE Stop: 09/24/17 10:01 Rosuvastatin Calcium (Crestor) 10 mg PO HS [facility] Last Admin: 09/22/17 22:05 Dose: 10 mg Sitagliptin Phosphate (Januvia) 50 mg PO DAILY [facility] Last Admin: 09/23/17 09:06 Dose: 50 mg - Labs Labs: 09/23/17 07:04 09/23/17 07:04 PT 11.2 SECONDS (9.7-12.2) 09/20/17 03:07 INR 1.0 09/20/17 03:07 APTT 26 SECONDS (21-34) 09/20/17 03:07
--- NOTE | 2017-09-24 02:47 | PN ---
DATE: FOLLOWUP RENAL CONSULTATION LOCATION: Patient is located in room 663, bed A. REQUESTED BY: Alexandru Dimas MD REASON FOR RENAL CONSULTATION: Chronic kidney disease, proteinuria, shortness of breath, for further evaluation. SUBJECTIVE: Mr. Tubbs is a 66 years old obese elderly [place] male with a past medical history significant for long-standing hypertension, diabetes, hyperlipidemia, osteoarthritis, coronary artery disease status post stents, was admitted with the chief complaints of dyspnea on exertion, PND, orthopnea, bilateral leg swelling, shortness of breath for about 2 weeks and patient was found to have elevated proBNP and also chest x-ray consistent with pulmonary congestion and started on IV Lasix b.i.d. Patient is feeling much better off oxygen. Denies any chest pain or palpitation. Patient is eager to go home. No chest pain. No palpitation. No fever. No cough. The echocardiogram consistent with LV function about 35%. PHYSICAL EXAMINATION: VITAL SIGNS: As follows: Blood pressure 155/73, pulse 65, respirations 20, temperature 98, saturation 99%. Height 5 feet 11 inches and weight is 269 pounds. GENERAL: Mr. Tubbs is a 66 years old elderly, obese [place] male, well-built, well-nourished, not in distress, resting comfortably without oxygen. HEENT: Pupils normal. Reactive to light and accommodation. Conjunctivae pink. Sclerae anicteric. Tongue is moist. Trachea is midline. LUNGS: Symmetric on both sides. Bilateral breath sounds present. Clear to auscultation. CARDIOVASCULAR SYSTEM: [place] at the fifth intercostal space, midclavicular line. S1, S2 audible. No murmur or gallop. ABDOMEN: Normal in appearance. Soft, tympanic. No guarding. No rigidity. No hepatosplenomegaly. CENTRAL NERVOUS SYSTEM: The patient is alert, awake, oriented x3. Nonfocal neuro examination. Cranial nerves II through XII grossly intact. Sensory and motor system is within normal limits. EXTREMITIES: No cyanosis, no clubbing. Patient has 1+ edema in both lower extremities. CURRENT MEDICATIONS: Include as follows: Coreg 25 mg p.o. b.i.d., losartan 100 mg p.o. daily, Crestor 10 mg at bedtime, vitamin D 50,000 units p.o. q. weekly, subcu heparin 5000 q. 8 hours, chlorthalidone 25 mg p.o. daily, Januvia mg daily, Lantus 22 units subcu b.i.d., Lasix 40 mg p.o. daily, amlodipine 5 mg daily, Pepcid 20 mg p.o. daily, Plavix 75 mg p.o. daily, Pneumovax x1, fenofibrate 145 mg p.o. daily, and Zetia 10 mg p.o. daily. LABORATORY DATA: As follows: As of 09/23/2017, WBC 5.5, hemoglobin 10.4, hematocrit is 30.4, platelets 153. Sodium 137, potassium 4.1, chloride 98, CO2 of 32, BUN 62, creatinine 2.7, glucose 122, calcium 8.7. Total bili 0.8, AST 42, ALT 35, alkaline phosphatase 50, total protein 6.2, albumin is 3.3. An echocardiogram as of 09/20/2017, left ventricular ejection fraction about 35% and impression is left ventricle is mildly dilated and there is mild concentric left ventricular hypertrophy. The systolic function is moderately impaired and tissue Doppler imaging reveals moderate left ventricular diastolic dysfunction. ASSESSMENT: In summary, Mr. Tubbs is a 66 years old elderly male, obese, with hypertension, diabetes, hyperlipidemia, coronary artery disease, chronic kidney disease with shortness of breath. 1. Congestive heart failure. 2. Chronic kidney disease, stage III, most likely secondary to diabetic nephropathy, cannot rule out underlying hypertensive nephrosclerosis. 3. Hypertension. 4. Diabetes. Sugars are under control. 5. Increased bicarbonate, cannot rule out contraction alkalosis secondary to increased diuresis. PLAN: Continue his current medication. Continue Lasix 40 mg daily, may need Lasix 40 mg p.o. b.i.d. and continue hydrochlorothiazide and may need sleep studies and CPAP. We will discuss with Dr. Dimas in a.m. We will follow with you. Thank you for allowing me to participate in your patient's care. Harish Leong MD
[2017-09-24 08:40] VITALS: TEMP 97.6; O2SAT 99
[2017-09-24] MEDS: (Novolin R) Insulin Human Regular 100 units/ml vial SC SCH ×2 (08:53→12:55)
[2017-09-24] MEDS ORDERED: Pneumococcal 23-Valent Vaccine IM ONE (10:00)
[2017-09-24 11:18] VITALS: BP 152/69
[2017-09-24] MEDS: (Lantus) Insulin Glargine, Recombinant SC SCH (11:25)
[2017-09-24 13:41] VITALS: PULSE 61
--- NOTE | 2017-09-24 14:19 | PCM.HF ---
Heart Failure Core Measure - Heart Failure Ejection Fraction: Less Than 40 % MINDY Inhibitor Prescribed: No Contraindication/Reason for not providing: ON ARB Beta-Holden Prescribed: Carvedilol Angiotensin II Receptor Holden Prescribed: Yes AnticoagulationTherapy for Atrial Fibrillation/Atrialflutter: No Contraindication/Reason for not providing: NO AFIB Aldosterone Antagonist Prescribed: No Contraindication/Reason for not providing: CKD Hydralazine Nitrate Prescribed: No Contraindication/Reason for not providing: CARDIOLOGY MAY START THIS OUTPATIENT ; POOR PT COMPLIANCE W MEDS AND F/U Implantable Cardioverter Defibrillator Therapy: No Contraindication/Reason for not providing: NO H/O Cardiac Resynchronization Therapy Prescribed: No Contraindication/Reason for not providing: NO H/O - Follow up Will be discharged to: Home Follow Up Date (must be within 7 days from discharge): 09/27/17 Follow Up Time: 09:00
--- NOTE | 2017-09-24 14:19 | CP.PCM.PN ---
Subjective - Date & Time of Evaluation Date of Evaluation: 09/24/17 Time of Evaluation: 14:19 Objective - Vital Signs/Intake and Output Vital Signs (last 24 hours): Temp Pulse Resp BP Pulse Ox 97.6 F 61 20 152/69 H 99 09/24/17 08:00 09/24/17 13:38 09/24/17 08:00 09/24/17 11:16 09/24/17 08:00 Intake and Output: 09/24/17 09/24/17 06:59 18:59 Intake Total 120 Balance 120 - Medications Medications: Current Medications Amlodipine Besylate (Norvasc) 5 mg PO DAILY COUNT INCLUDES THE [facility] Last Admin: 09/24/17 11:16 Dose: 5 mg Carvedilol (Coreg) 25 mg PO BID COUNT INCLUDES THE [facility] Last Admin: 09/24/17 11:16 Dose: 25 mg Chlorthalidone (Hygroton) 25 mg PO DAILY COUNT INCLUDES THE [facility] Last Admin: 09/24/17 11:15 Dose: 25 mg Clopidogrel Bisulfate (Plavix) 75 mg PO DAILY COUNT INCLUDES THE [facility] Last Admin: 09/24/17 11:16 Dose: 75 mg Ezetimibe (Zetia) 10 mg PO DAILY COUNT INCLUDES THE [facility] Last Admin: 09/24/17 11:15 Dose: 10 mg Ergocalciferol (Drisdol 50,000 Intl Units Cap) 1 cap PO QWK COUNT INCLUDES THE [facility] Last Admin: 09/23/17 09:10 Dose: 1 cap Famotidine (Pepcid) 20 mg PO DAILY COUNT INCLUDES THE [facility] Last Admin: 09/24/17 11:17 Dose: 20 mg Fenofibrate (Tricor) 145 mg PO DAILY COUNT INCLUDES THE [facility] Last Admin: 09/24/17 11:15 Dose: 145 mg Furosemide (Lasix) 40 mg PO DAILY COUNT INCLUDES THE [facility] Last Admin: 09/24/17 11:16 Dose: 40 mg Heparin Sodium (Porcine) (Heparin) 5,000 units SC Q8 COUNT INCLUDES THE [facility] Last Admin: 09/24/17 14:11 Dose: 5,000 units Insulin Glargine (Lantus) 22 unit SC BID COUNT INCLUDES THE [facility] Last Admin: 09/24/17 11:25 Dose: 22 units Insulin Human Regular (Novolin R) 0 unit SC ACHS COUNT INCLUDES THE [facility] PRN Reason: Protocol Last Admin: 09/24/17 12:55 Dose: 1 unit Losartan Potassium (Cozaar) 100 mg PO DAILY COUNT INCLUDES THE [facility] Last Admin: 09/24/17 11:16 Dose: 100 mg Rosuvastatin Calcium (Crestor) 10 mg PO HS COUNT INCLUDES THE [facility] Last Admin: 09/23/17 21:17 Dose: 10 mg Sitagliptin Phosphate (Januvia) 50 mg PO DAILY COUNT INCLUDES THE [facility] Last Admin: 09/24/17 11:16 Dose: 50 mg - Labs Labs: 09/23/17 07:04 09/23/17 07:04 PT 11.2 SECONDS (9.7-12.2) 09/20/17 03:07 INR 1.0 09/20/17 03:07 APTT 26 SECONDS (21-34) 09/20/17 03:07
--- NOTE | 2017-09-24 20:00 | CP.PCM.DIS ---
Provider - Provider Date of Admission: 09/20/17 05:50 Attending physician: Alexandru Matson MD Time Spent in preparation of Discharge (in minutes): 45 Diagnosis - Discharge Diagnosis (1) Heart failure, chronic, with acute decompensation Status: Acute (2) Chronic renal failure, stage 4 (severe) Status: Acute (3) Pedal edema Status: Acute (4) Central sleep apnea Status: Acute (5) DM (diabetes mellitus) type I uncontrolled with renal manifestation Status: Acute Hospital Course - Lab Results Lab Results: Most Recent Lab Values WBC 5.5 K/uL (4.8-10.8) 09/23/17 07:04 RBC 3.42 Mil/uL (4.40-5.90) L 09/23/17 07:04 Hgb 10.5 g/dL (12.0-18.0) L 09/23/17 07:04 Hct 30.4 % (35.0-51.0) L 09/23/17 07:04 MCV 88.8 fL (80.0-94.0) 09/23/17 07:04 MCH 30.7 pg (27.0-31.0) 09/23/17 07:04 MCHC 34.6 g/dL (33.0-37.0) 09/23/17 07:04 RDW 13.5 % (11.5-14.5) 09/23/17 07:04 Plt Count 153 K/uL (130-400) 09/23/17 07:04 MPV 8.7 fL (7.2-11.7) 09/23/17 07:04 Neut % (Auto) 63.7 % (50.0-75.0) 09/23/17 07:04 Lymph % (Auto) 17.4 % (20.0-40.0) L 09/23/17 07:04 Glenn % (Auto) 13.9 % (0.0-10.0) H 09/23/17 07:04 Eos % (Auto) 4.4 % (0.0-4.0) H 09/23/17 07:04 Baso % (Auto) 0.6 % (0.0-2.0) 09/23/17 07:04 Neut # 3.5 K/uL (1.8-7.0) 09/23/17 07:04 Lymph # 0.9 K/uL (1.0-4.3) L 09/23/17 07:04 Glenn # 0.8 K/uL (0.0-0.8) 09/23/17 07:04 Eos # 0.2 K/uL (0.0-0.7) 09/23/17 07:04 Baso # 0.0 K/uL (0.0-0.2) 09/23/17 07:04 PT 11.2 SECONDS (9.7-12.2) 09/20/17 03:07 INR 1.0 09/20/17 03:07 APTT 26 SECONDS (21-34) 09/20/17 03:07 Puncture Site Rr 09/20/17 03:20 pCO2 47 mm/Hg (35-45) H 09/20/17 03:20 pO2 286 mm/Hg (80-100) H 09/20/17 03:20 HCO3 25.5 mmol/L (21-28) 09/20/17 03:20 ABG pH 7.36 (7.35-7.45) 09/20/17 03:20 ABG Total CO2 28.0 mmol/L (22-28) 09/20/17 03:20 ABG O2 Saturation 99.7 % (95-98) H 09/20/17 03:20 ABG Base Excess 0.6 mmol/L (-2.0-3.0) 09/20/17 03:20 Miguel Angel Test Pos 09/20/17 03:20 ABG Potassium 4.8 mmol/L (3.6-5.2) 09/20/17 03:20 A-a O2 Difference 12.0 mm/Hg 09/20/17 03:20 Respiratory Index 0 09/20/17 03:20 Sodium 145.0 mmol/l (132-148) 09/20/17 03:20 Chloride 119.0 mmol/L (98-107) H 09/20/17 03:20 Glucose 155 mg/dl (75-110) H 09/20/17 03:20 Lactate 0.6 mmol/L (0.7-2.1) L 09/20/17 03:20 Vent Mode Bipap 09/20/17 03:20 FiO2 50.0 % 09/20/17 03:20 Inspiratory BiPAP 12 09/20/17 03:20 Expiratory BiPAP 5 09/20/17 03:20 Sodium 137 mmol/L (132-148) 09/23/17 07:04 Potassium 4.1 mmol/L (3.6-5.2) 09/23/17 07:04 Chloride 98 mmol/L (98-107) 09/23/17 07:04 Carbon Dioxide 32 mmol/L (22-30) H 09/23/17 07:04 Anion Gap 12 (10-20) 09/23/17 07:04 BUN 62 mg/dL (9-20) H 09/23/17 07:04 Creatinine 2.7 mg/dL (0.8-1.5) H 09/23/17 07:04 Est GFR ( Amer) 29 09/23/17 07:04 Est GFR (Non-Af Amer) 24 09/23/17 07:04 POC Glucose (mg/dL) 186 mg/dL (65-110) H 09/24/17 11:36 Random Glucose 105 mg/dL (75-110) 09/23/17 07:04 Hemoglobin A1c 6.4 % (4.2-6.5) 09/20/17 11:14 Calcium 8.7 mg/dl (8.6-10.4) 09/23/17 07:04 Total Bilirubin 0.8 mg/dL (0.2-1.3) 09/23/17 07:04 AST 42 U/L (17-59) 09/23/17 07:04 ALT 35 U/L (21-72) 09/23/17 07:04 Alkaline Phosphatase 50 U/L (38-126) 09/23/17 07:04 Total Creatine Kinase 296 U/L (55-170) H 09/20/17 17:20 CK-MB (Mass) 7.33 ng/mL (0.0-3.38) H 09/20/17 17:20 Troponin I 0.0630 ng/mL (0.00-0.120) 09/20/17 17:20 NT-Pro-B Natriuret Pep 2320 pg/mL (0-900) H 09/20/17 03:07 Total Protein 6.2 g/dL (6.3-8.3) L 09/23/17 07:04 Albumin 3.3 g/dL (3.5-5.0) L 09/23/17 07:04 Globulin 2.9 gm/dL (2.2-3.9) 09/23/17 07:04 Albumin/Globulin Ratio 1.2 (1.0-2.1) 09/23/17 07:04 Triglycerides 134 mg/dL (0-149) 09/20/17 11:14 Cholesterol 106 mg/dL (0-199) 09/20/17 11:14 LDL Cholesterol Direct 50 mg/dL (0-129) 09/20/17 11:14 HDL Cholesterol 28 mg/dL (30-70) L 09/20/17 11:14 PTH Intact Whole Molec 108 pg/mL (14-64) H 09/20/17 11:14 Arterial Blood Potassium 4.8 mmol/L (3.6-5.2) 09/20/17 03:20 Urine Color Colorless (YELLOW) 09/20/17 18:06 Urine Clarity Clear (Clear) 09/20/17 18:06 Urine pH 5.0 (5.0-8.0) 09/20/17 18:06 Ur Specific [place] 1.008 (1.003-1.030) 09/20/17 18:06 Urine Protein 2+ mg/dL (NEGATIVE) H 09/20/17 18:06 Urine Glucose (UA) Normal mg/dL (Normal) 09/20/17 18:06 Urine Ketones Negative mg/dL (NEGATIVE) 09/20/17 18:06 Urine Blood Negative (NEGATIVE) 09/20/17 18:06 Urine Nitrate Negative (NEGATIVE) 09/20/17 18:06 Urine Bilirubin Negative (NEGATIVE) 09/20/17 18:06 Urine Urobilinogen Normal mg/dL (0.2-1.0) 09/20/17 18:06 Ur Leukocyte Esterase Neg [place]/uL (Negative) 09/20/17 18:06 Urine WBC (Auto) < 1 /hpf (0-5) 09/20/17 18:06 Urine RBC (Auto) < 1 /hpf (0-3) 09/20/17 18:06 Ur Squamous Epith Cells < 1 /hpf (0-5) 09/20/17 18:06 Serum Ketones Negative (NEGATIVE) 09/20/17 03:07 Hepatitis A IgM Ab Negative (NEGATIVE) 09/20/17 11:14 Hep Bs Antigen Negative (NEGATIVE) 09/20/17 11:14 Hep B Core IgM Ab Negative (NEGATIVE) 09/20/17 11:14 Hepatitis C Antibody Negative (NEGATIVE) 09/20/17 11:14 - Hospital Course Hospital Course: Patient is a 66-year-old male with a history of hypertension diabetes CAD status post stent renal insufficiency admitted to the hospital with worsening shortness of breath. Patient recently receiving intravenous IV Lasix. Patient also had swelling. He was also using BiPAP in the hospital. During the stay in the hospital and the weight was monitored, the rhythm was monitored. Patient was seen by electroslag welding machine operator, jockey agent. Patient started improving slowly. Initially he was using BiPAP, but later stopped using. He was tolerating the nasal cannula. His leg swelling improved markedly. Studies included: A chest x-ray on 09/20 showing evidence of CHF. Venous Doppler of the bilateral upper extremity normal. Echocardiogram dated 09/20/2017: Moderately impaired systolic function Moderate LV diastolic dysfunction ejection fraction is 35%. Likely CAD with ischemic cardiomyopathy. The patient's home medication was adjusted. Patient is taking the Lantus 22 units twice a day Plavix 75 mg daily Amlodipine 5 mg daily Valsartan 320 mg daily Januvia 50 mg daily Omeprazole 20 mg daily Fenofibrate 160 mg daily Vytorin 10/40 daily Vitamin D3 50,000 unit weekly Chlorthalidone 25 mg daily Coreg 25 mg twice daily Lasix 40 mg daily Amaryl 2 mg daily twice daily Patient definitely will need outpatient sleep study. He will follow-up with the electroslag welding machine operator. Patient may need a cardiac workup further as an outpatient. Discussed with the patient. And will follow the patient. Final diagnosis acute systolic heart failure. Decompensated systolic heart failure. Hypertension. Renal insufficiency, diabetic obligations. Possible obstructive sleep apnea. Will follow the patient Discharge Exam - Head Exam Head Exam: NORMAL INSPECTION Discharge Plan - Discharge Medications Prescriptions: Glimepiride [amaRYL] 2 mg PO BID 30 Days tab Furosemide [Lasix] 40 mg PO DAILY #30 tab - Follow Up Plan Condition: FAIR Disposition: HOME/ ROUTINE Instructions: Heart Failure (DC), Heart Healthy Diet (DC), Dyspnea (GEN) Additional Instructions: FOLLOW UP WITH DR. MATSON WITHIN 1 WEEK OF DISCHARGE AND BEFORE YOU RETURN TO WORK---CALL THE OFFICE TODAY OR TOMORROW MORNING FOR AN APPT TIME. FOLLOW UP WITH DR. SNOWDEN AND DR. GONSALEZ IN THEIR OFFICES SCHEDULED ALREADY. CONTINUE TAKING YOUR MEDICATIONS AT HOME USUAL. NO NEW PRESCRIPTIONS GIVEN TODAY. IF YOU HAVE ANY FURTHER QUESTIONS OR CONCERNS, CONTACT DR. MATSON. Referrals: Frankie Snowden MD [Staff Provider] - Harish Leong MD [Staff Provider] - Alexandru Matson MD [Staff Provider] -
== END 2017-09-24 16:02 | disposition home or self-care (01) | DRG 291 ==
LOC: C.ER 02:22 → C.6T 05:50 → C.9E 06:14 → C.6T 06:15
PROVIDERS: ADMIT Internal Medicine; ATTEND Internal Medicine
DX: I13.0 Hypertensive heart and chronic kidney disease with heart failure and stage 1 through stage 4 chronic kidney disease, or unspecified chronic kidney disease (principal); I50.23 Acute on chronic systolic (congestive) heart failure; E10.21 Type 1 diabetes mellitus with diabetic nephropathy; N18.4 Chronic kidney disease, stage 4 (severe); E10.22 Type 1 diabetes mellitus with diabetic chronic kidney disease; E66.9 Obesity, unspecified; E78.5 Hyperlipidemia, unspecified; I44.0 Atrioventricular block, first degree; Z79.02 Long term (current) use of antithrombotics/antiplatelets; Z79.4 Long term (current) use of insulin; E10.65 Type 1 diabetes mellitus with hyperglycemia; G47.33 Obstructive sleep apnea (adult) (pediatric); G47.31 Primary central sleep apnea; I25.10 Atherosclerotic heart disease of native coronary artery without angina pectoris; Z95.5 Presence of coronary angioplasty implant and graft; I25.5 Ischemic cardiomyopathy; Z79.899 Other long term (current) drug therapy; Z87.891 Personal history of nicotine dependence; Z68.37 Body mass index [BMI] 37.0-37.9, adult

== ENCOUNTER 2018-02-27 00:02 | Inpatient (IN) | payer OTHER, MEDICARE ==
[2018-02-27] MEDS ORDERED: Dextrose 50% SYRINGE Inj (50 ml) IV STA (00:54)
--- NOTE | 2018-02-27 01:06 | C.PDOC ---
History Of Present Illness 67yo male with history of diabetes, hypertension, high cholesterol, COPD and currently on CPAP at home, CAD with 2 stents, is brought to ER by EMS for evaluation after patient was discovered by his family in a confused state. Per EMS, patient had a sugar level of 42 and was given an amp of D50 en route to ER with repeat blood sugar indicating levels of 167. In ER, patient's accucheck is 82 and was given orange juice and gel after which the level was found to be 69. Patient currently states he feels a tingling sensation going from his left arm to his right. He denies any chest pain, shortness of breath, nausea, vomiting, diarrhea, fever or chills. Time Seen by Provider: 02/27/18 00:16 Chief Complaint (Nursing): Medical Clearance History Per: Patient History/Exam Limitations: no limitations Onset/Duration Of Symptoms: Hrs Past Medical History Reviewed: Historical Data, Nursing Documentation, Vital Signs Vital Signs: Last Vital Signs Temp 97.6 F 02/27/18 04:43 Pulse 76 02/27/18 04:43 Resp 20 02/27/18 04:43 BP 168/80 H 02/27/18 04:43 Pulse Ox 98 02/27/18 05:08 - Medical History PMH: COPD, Diabetes, HTN, Chronic Kidney Disease Surgical History: Coronary Stent (x2) - [facility] Procedures CORONAR ARTERIOGR-2 CATH (07/23/03) LEFT HEART CARDIAC CATH (07/23/03) LT HEART ANGIOCARDIOGRAM (07/23/03) Family History: States: Unknown Family Hx - Social History Hx Tobacco Use: Yes (stopped smoking 17 years ago) Hx Alcohol Use: Yes Hx Substance Use: No - Immunization History Hx Tetanus Toxoid Vaccination: Yes Hx Influenza Vaccination: Yes Hx Pneumococcal Vaccination: Yes Review Of Systems Except As Marked, All Systems Reviewed And Found Negative. Constitutional: Positive for: Weakness. Negative for: Fever, Chills Eyes: Negative for: Pain ENT: Negative for: Ear Pain, Ear Discharge, Nose Pain Cardiovascular: Positive for: Light Headedness. Negative for: Chest Pain, Palpitations, Orthopnea, Paroxysmal Noc. Dyspnea, Edema Respiratory: Negative for: Cough, Shortness of Breath, SOB with Excertion, Pleuritic Pain Gastrointestinal: Negative for: Nausea, Vomiting, Diarrhea, Constipation Genitourinary: Positive for: Hematuria. Negative for: Dysuria, Frequency Musculoskeletal: Positive for: Back Pain. Negative for: Neck Pain Skin: Negative for: Rash Neurological: Positive for: Weakness, Confusion, Other (tingling sensation to right and left arm) Physical Exam - Physical Exam Appears: In Acute Distress, Confused Skin: Warm, Dry Head: Atraumatic, Normacephalic Eye(s): bilateral: Normal Inspection, PERRL Oral Mucosa: Moist Neck: Normal ROM, Supple Chest: Symmetrical Cardiovascular: Rhythm Regular Respiratory: Normal Breath Sounds, No Wheezing Gastrointestinal/Abdominal: Normal Exam, Soft Back: Normal Inspection Extremity: Normal ROM Neurological/Psych: Oriented x3 ED Course And Treatment - Laboratory Results Result Diagrams: 02/27/18 01:17 02/27/18 01:17 ECG: Interpreted By Me, Viewed By Me ECG Rhythm: Sinus Rhythm, 1st Degree HB ECG Interpretation: No Changes From Prior (compared to EKG on 09/23/17) Interpretation Of ECG: VA: 310. QRS: 110. QT: 430. QTC: 432. No ischemic changes, T-wave inversion in V5, V6, 1 and AVL Rate From EC O2 Sat by Pulse Oximetry: 98 (RA) Pulse Ox Interpretation: Normal Critical Care Time - Critical Care Note Total Time (in mins): 30 Documented critical care: time excludes all time spent performing seperately billable procedures. Medical Decision Making Medical Decision Making: Impression: Hypoglycemia Plan: -- Labs -- IV Dextrose 50ml -- Urinalysis Time: [address] Dimas, who accepts patient for admission. Disposition Counseled Patient/Family Regarding: Diagnosis - Disposition Disposition: HOSPITALIZED Disposition Time: 06:41 Condition: GOOD - Clinical Impression Clinical Impression: Hypoglycemia - Scribe Statement The provider has reviewed the documentation as recorded by the Scribe (Mimi Lala) Provider Attestation: All medical record entries made by the Scribe were at my direction and personally dictated by me. I have reviewed the chart and agree that the record accurately reflects my personal performance of the history, physical exam, medical decision making, and the department course for this patient. I have also personally directed, reviewed, and agree with the discharge instructions and disposition.
[2018-02-27] MEDS ORDERED: Dextrose 50% SYRINGE Inj (50 ml) ONE (01:09)
[2018-02-27 01:30] LABS: BASO # 0.1 K/uL (0.0-0.2); BASO % 0.9 % (0.0-2.0); EOS # 0.2 K/uL (0.0-0.7); EOS % 3.5 % (0.0-4.0); HEMOGLOBIN 9.9 g/dL (12.0-18.0); LYMPH # 1.1 K/uL (1.0-4.3); LYMPH % 16.7 % (20.0-40.0); MEAN CELL VOLUME 88.8 fL (80.0-94.0); MEAN CORPUSCULAR HEMOGLOBIN 29.9 pg (27.0-31.0); MEAN CORPUSCULAR HGB CONC 33.7 g/dL (33.0-37.0); MEAN PLATELET VOLUME 9.2 fL (7.2-11.7); MONO # 0.7 K/uL (0.0-0.8); MONO % 10.8 % (0.0-10.0); NEUT # 4.5 K/uL (1.8-7.0); NEUT % 68.1 % (50.0-75.0); RBC 3.3 Mil/uL (4.40-5.90); WHITE BLOOD COUNT 6.6 K/uL (4.8-10.8)
[2018-02-27 01:44] LABS: TROPONIN I 0.021 ng/mL (0.00-0.120)
[2018-02-27 01:45] LABS: ALB/GLOB RATIO 1.1 (1.0-2.1); ALBUMIN 3.7 g/dL (3.5-5.0); CALCIUM 8.7 mg/dl (8.6-10.4)
[2018-02-27] MEDS ORDERED: Lactated Ringer's 1,000 ML IV ONE (03:09)
[2018-02-27 03:23] LABS: SPERM URINE RARE /hpf; URINE BILIRUBIN NEGATIVE (NEGATIVE); URINE BLOOD NEGATIVE (NEGATIVE); URINE CLARITY Clear (Clear); URINE COLOR Yellow (YELLOW); URINE GLUCOSE (UA) NORMAL (Normal); URINE LEUKOCYTE ESTERASE NEG Leu/uL (Negative); URINE PROTEIN 2+ mg/dL (NEGATIVE); URINE UROBILINOGEN NORMAL mg/dL (0.2-1.0)
--- NOTE | 2018-02-27 08:16 | RAD ---
PROCEDURE: CHEST RADIOGRAPH, 1 VIEW HISTORY: abd pain COMPARISON: 09/20/2017 FINDINGS: LUNGS: Clear. PLEURA: No pneumothorax or pleural fluid seen. CARDIOVASCULAR: Normal. OSSEOUS STRUCTURES: No significant abnormalities. VISUALIZED UPPER ABDOMEN: Normal. OTHER FINDINGS: None. IMPRESSION: No active disease.
--- NOTE | 2018-02-27 15:53 | CP.PCM.HP ---
Past Patient History - Past Social History Smoking Status: Former Smoker - CARDIAC Hx Hypertension: Yes - PULMONARY Hx Chronic Obstructive Pulmonary Disease (COPD): Yes - RENAL Hx Chronic Kidney Disease: Yes - ENDOCRINE/METABOLIC Hx Endocrine Disorders: Yes Hx Diabetes Mellitus Type 2: Yes - MUSCULOSKELETAL/RHEUMATOLOGICAL Hx Falls: No - PSYCHIATRIC Hx Substance Use: No - SURGICAL HISTORY Hx Coronary Stent: Yes (x2) - ANESTHESIA Hx Anesthesia: Yes Hx Anesthesia Reactions: No Meds Allergies/Adverse Reactions: Allergies Allergy/AdvReac Type Severity Reaction Status Date / Time No Known Allergies Allergy Verified 02/27/18 00:25 Results - Vital Signs Recent Vital Signs: Last Vital Signs Temp 98.7 F 02/27/18 12:00 Pulse 78 02/27/18 14:00 Resp 19 02/27/18 14:00 BP 162/72 H 02/27/18 14:00 Pulse Ox 99 02/27/18 14:00 - Labs Result Diagrams: 02/27/18 01:17 02/27/18 01:17 Labs: Laboratory Results - last 24 hr 02/27/18 02/27/18 02/27/18 00:10 00:45 00:48 WBC RBC Hgb Hct MCV MCH MCHC RDW Plt Count MPV Neut % (Auto) Lymph % (Auto) King % (Auto) Eos % (Auto) Baso % (Auto) Neut # (Auto) Lymph # (Auto) King # (Auto) Eos # (Auto) Baso # (Auto) Sodium Potassium Chloride Carbon Dioxide Anion Gap BUN Creatinine Est GFR ( Amer) Est GFR (Non-Af Amer) POC Glucose (mg/dL) 82 69 Random Glucose Calcium Total Bilirubin AST ALT Alkaline Phosphatase Troponin I NT-Pro-B Natriuret Pep Total Protein Albumin Globulin Albumin/Globulin Ratio Lipase Urine Color Yellow Urine Clarity Clear Urine pH 5.0 Ur Specific [place] 1.013 Urine Protein 2+ H Urine Glucose (UA) Normal Urine Ketones Negative Urine Blood Negative Urine Nitrate Negative Urine Bilirubin Negative Urine Urobilinogen Normal Ur Leukocyte Esterase Neg Urine WBC (Auto) 1 Urine RBC (Auto) 1 Urine Sperm (Auto) Rare H 02/27/18 02/27/18 02/27/18 01:17 01:17 01:50 WBC 6.6 RBC 3.30 L Hgb 9.9 L Hct 29.3 L MCV 88.8 MCH 29.9 MCHC 33.7 RDW 14.0 Plt Count 162 MPV 9.2 Neut % (Auto) 68.1 Lymph % (Auto) 16.7 L [place] % (Auto) 10.8 H Eos % (Auto) 3.5 Baso % (Auto) 0.9 Neut # (Auto) 4.5 Lymph # (Auto) 1.1 King # (Auto) 0.7 Eos # (Auto) 0.2 Baso # (Auto) 0.1 Sodium 150 H Potassium 4.2 Chloride 112 H Carbon Dioxide 24 Anion Gap 18 BUN 60 H Creatinine 3.5 H Est GFR ( Amer) 21 Est GFR (Non-Af Amer) 17 POC Glucose (mg/dL) 106 Random Glucose 58 L Calcium 8.7 Total Bilirubin 0.6 AST 38 ALT 16 L Alkaline Phosphatase 44 Troponin I 0.0210 NT-Pro-B Natriuret Pep 1060 H Total Protein 7.3 Albumin 3.7 Globulin 3.5 Albumin/Globulin Ratio 1.1 Lipase 327 H Urine Color Urine Clarity Urine pH Ur Specific [place] Urine Protein Urine Glucose (UA) Urine Ketones Urine Blood Urine Nitrate Urine Bilirubin Urine Urobilinogen Ur Leukocyte Esterase Urine WBC (Auto) Urine RBC (Auto) Urine Sperm (Auto) 02/27/18 02/27/18 02/27/18 04:42 05:59 08:13 WBC RBC Hgb Hct MCV MCH MCHC RDW Plt Count MPV Neut % (Auto) Lymph % (Auto) King % (Auto) Eos % (Auto) Baso % (Auto) Neut # (Auto) Lymph # (Auto) King # (Auto) Eos # (Auto) Baso # (Auto) Sodium Potassium Chloride Carbon Dioxide Anion Gap BUN Creatinine Est GFR ( Amer) Est GFR (Non-Af Amer) POC Glucose (mg/dL) 94 82 60 L Random Glucose Calcium Total Bilirubin AST ALT Alkaline Phosphatase Troponin I NT-Pro-B Natriuret Pep Total Protein Albumin Globulin Albumin/Globulin Ratio Lipase Urine Color Urine Clarity Urine pH Ur Specific [place] Urine Protein Urine Glucose (UA) Urine Ketones Urine Blood Urine Nitrate Urine Bilirubin Urine Urobilinogen Ur Leukocyte Esterase Urine WBC (Auto) Urine RBC (Auto) Urine Sperm (Auto) 02/27/18 02/27/18 02/27/18 08:15 10:14 11:53 WBC RBC Hgb Hct MCV MCH MCHC RDW Plt Count MPV Neut % (Auto) Lymph % (Auto) [place] % (Auto) Eos % (Auto) Baso % (Auto) Neut # (Auto) Lymph # (Auto) King # (Auto) Eos # (Auto) Baso # (Auto) Sodium Potassium Chloride Carbon Dioxide Anion Gap BUN Creatinine Est GFR ( Amer) Est GFR (Non-Af Amer) POC Glucose (mg/dL) 60 L 160 H 201 H Random Glucose Calcium Total Bilirubin AST ALT Alkaline Phosphatase Troponin I NT-Pro-B Natriuret Pep Total Protein Albumin Globulin Albumin/Globulin Ratio Lipase Urine Color Urine Clarity Urine pH Ur Specific [place] Urine Protein Urine Glucose (UA) Urine Ketones Urine Blood Urine Nitrate Urine Bilirubin Urine Urobilinogen Ur Leukocyte Esterase Urine WBC (Auto) Urine RBC (Auto) Urine Sperm (Auto) 02/27/18 14:05 WBC RBC Hgb Hct MCV MCH MCHC RDW Plt Count MPV Neut % (Auto) Lymph % (Auto) [place] % (Auto) Eos % (Auto) Baso % (Auto) Neut # (Auto) Lymph # (Auto) King # (Auto) Eos # (Auto) Baso # (Auto) Sodium Potassium Chloride Carbon Dioxide Anion Gap BUN Creatinine Est GFR ( Amer) Est GFR (Non-Af Amer) POC Glucose (mg/dL) 188 H Random Glucose Calcium Total Bilirubin AST ALT Alkaline Phosphatase Troponin I NT-Pro-B Natriuret Pep Total Protein Albumin Globulin Albumin/Globulin Ratio Lipase Urine Color Urine Clarity Urine pH Ur Specific [place] Urine Protein Urine Glucose (UA) Urine Ketones Urine Blood Urine Nitrate Urine Bilirubin Urine Urobilinogen Ur Leukocyte Esterase Urine WBC (Auto) Urine RBC (Auto) Urine Sperm (Auto)
[2018-02-28 12:31] VITALS: BP 133/60; PULSE 62; RESP 18; TEMP 98.1; O2SAT 98
--- NOTE | 2018-02-28 13:21 | CP.PCM.DIS ---
Provider - Provider Date of Admission: 02/27/18 03:11 Attending physician: Alexandru Dimas MD Hospital Course - Lab Results Lab Results: Most Recent Lab Values WBC 6.6 K/uL (4.8-10.8) 02/27/18 01:17 RBC 3.30 Mil/uL (4.40-5.90) L 02/27/18 01:17 Hgb 9.9 g/dL (12.0-18.0) L 02/27/18 01:17 Hct 29.3 % (35.0-51.0) L 02/27/18 01:17 MCV 88.8 fL (80.0-94.0) 02/27/18 01:17 MCH 29.9 pg (27.0-31.0) 02/27/18 01:17 MCHC 33.7 g/dL (33.0-37.0) 02/27/18 01:17 RDW 14.0 % (11.5-14.5) 02/27/18 01:17 Plt Count 162 K/uL (130-400) 02/27/18 01:17 MPV 9.2 fL (7.2-11.7) 02/27/18 01:17 Neut % (Auto) 68.1 % (50.0-75.0) 02/27/18 01:17 Lymph % (Auto) 16.7 % (20.0-40.0) L 02/27/18 01:17 [place] % (Auto) 10.8 % (0.0-10.0) H 02/27/18 01:17 Eos % (Auto) 3.5 % (0.0-4.0) 02/27/18 01:17 Baso % (Auto) 0.9 % (0.0-2.0) 02/27/18 01:17 Neut # (Auto) 4.5 K/uL (1.8-7.0) 02/27/18 01:17 Lymph # (Auto) 1.1 K/uL (1.0-4.3) 02/27/18 01:17 [place] # (Auto) 0.7 K/uL (0.0-0.8) 02/27/18 01:17 Eos # (Auto) 0.2 K/uL (0.0-0.7) 02/27/18 01:17 Baso # (Auto) 0.1 K/uL (0.0-0.2) 02/27/18 01:17 Sodium 150 mmol/L (132-148) H 02/27/18 01:17 Potassium 4.2 mmol/L (3.6-5.2) 02/27/18 01:17 Chloride 112 mmol/L (98-107) H 02/27/18 01:17 Carbon Dioxide 24 mmol/L (22-30) 02/27/18 01:17 Anion Gap 18 (10-20) 02/27/18 01:17 BUN 60 mg/dL (9-20) H 02/27/18 01:17 Creatinine 3.5 mg/dL (0.8-1.5) H 02/27/18 01:17 Est GFR ( Amer) 21 02/27/18 01:17 Est GFR (Non-Af Amer) 17 02/27/18 01:17 POC Glucose (mg/dL) 195 mg/dL (65-110) H 02/28/18 11:25 Random Glucose 58 mg/dL (75-110) L 02/27/18 01:17 Calcium 8.7 mg/dl (8.6-10.4) 02/27/18 01:17 Total Bilirubin 0.6 mg/dL (0.2-1.3) 02/27/18 01:17 AST 38 U/L (17-59) 02/27/18 01:17 ALT 16 U/L (21-72) L 02/27/18 01:17 Alkaline Phosphatase 44 U/L (38-126) 02/27/18 01:17 Troponin I 0.0210 ng/mL (0.00-0.120) 02/27/18 01:17 NT-Pro-B Natriuret Pep 1060 pg/mL (0-900) H 02/27/18 01:17 Total Protein 7.3 g/dL (6.3-8.3) 02/27/18 01:17 Albumin 3.7 g/dL (3.5-5.0) 02/27/18 01:17 Globulin 3.5 gm/dL (2.2-3.9) 02/27/18 01:17 Albumin/Globulin Ratio 1.1 (1.0-2.1) 02/27/18 01:17 Lipase 327 U/L (23-300) H 02/27/18 01:17 Urine Color Yellow (YELLOW) 02/27/18 00:48 Urine Clarity Clear (Clear) 02/27/18 00:48 Urine pH 5.0 (5.0-8.0) 02/27/18 00:48 Ur Specific [place] 1.013 (1.003-1.030) 02/27/18 00:48 Urine Protein 2+ mg/dL (NEGATIVE) H 02/27/18 00:48 Urine Glucose (UA) Normal mg/dL (Normal) 02/27/18 00:48 Urine Ketones Negative mg/dL (NEGATIVE) 02/27/18 00:48 Urine Blood Negative (NEGATIVE) 02/27/18 00:48 Urine Nitrate Negative (NEGATIVE) 02/27/18 00:48 Urine Bilirubin Negative (NEGATIVE) 02/27/18 00:48 Urine Urobilinogen Normal mg/dL (0.2-1.0) 02/27/18 00:48 Ur Leukocyte Esterase Neg [place]/uL (Negative) 02/27/18 00:48 Urine WBC (Auto) 1 /hpf (0-5) 02/27/18 00:48 Urine RBC (Auto) 1 /hpf (0-3) 02/27/18 00:48 Urine Sperm (Auto) Rare /hpf (NONE) H 02/27/18 00:48 Discharge Plan - Follow Up Plan Condition: GOOD Disposition: HOME/ ROUTINE
--- NOTE | 2018-02-28 23:39 | CARD ---
APPROVED REPORT EKG Measurement Heart [id number] <Conclusion> Sinus rhythm with 1st degree AV block Inferior infarct, age undetermined Anteroseptal infarct, age undetermined Abnormal ECG
== END 2018-02-28 14:40 | disposition home or self-care (01) | DRG 639 ==
LOC: C.ER 00:02 → C.9E 03:11 → C.9I 06:43
PROVIDERS: ADMIT Internal Medicine; ATTEND Internal Medicine
DX: E11.649 Type 2 diabetes mellitus with hypoglycemia without coma (principal); Z79.4 Long term (current) use of insulin

== ENCOUNTER 2018-09-22 06:03 | Day surgery (SDC) | payer OTHER, MEDICARE ==
[2018-09-10 08:23] VITALS: BMI 34.7
[2018-09-22] MEDS ORDERED: HEPARIN-NS 5,000 UNITS/500 ML 5,000 UNIT/500 ML BAG IV ONE (07:07)
[2018-09-22] MEDS ORDERED: ceFAZolin IV 1 gm in Dextrose 2 GM/100 ML BAG IVPB ONE (07:07)
[2018-09-22] MEDS ORDERED: Midazolam 2 MG/2 ML VIAL ONE (07:24)
[2018-09-22] MEDS ORDERED: Propofol 10 mg/ml Inj (20 ML) ONE (07:24)
[2018-09-22 08:08] LABS: CALCIUM 9.2 mg/dl (8.6-10.4)
[2018-09-22] MEDS ORDERED: Lidocaine Hydrochloride 5 ML INJ ONE (09:43)
[2018-09-22] MEDS ORDERED: Neostigmine Methylsulfate 3mg/3ml Syringe IV ONE (09:43)
[2018-09-22] MEDS ORDERED: HYDROmorphone 0.5 mg/0.5 ml ISec IVP PRN (09:54)
--- NOTE | 2018-09-22 10:06 | PCM.SURG1 ---
Surgeon's Initial Post Op Note - Surgeon's Notes Surgeon: Dr. Ewing Laboratory Veterinarian: Dr. Magaña PGY-3 Type of Anesthesia: General Endo Pre-Operative Diagnosis: End Stage Renal Disease Operative Findings: See operative report Post-Operative Diagnosis: Same Operation Performed: Creation of Radiocephalic AVF Left Arm Specimen/Specimens Removed: none Estimated Blood Loss: EBL {In ML}: 20 Blood Products Given: N/A Drains Used: No Drains Post-Op Condition: Good Date of Surgery/Procedure: 09/22/18 Time of Surgery/Procedure: 10:06
[2018-09-22 11:13] VITALS: PULSE 58
[2018-09-22 11:51] VITALS: RESP 16; O2SAT 97
[2018-09-22 12:26] VITALS: BP 117/50; TEMP 97.9
--- NOTE | 2018-09-22 21:17 | OP ---
PROCEDURE DATE: 09/22/2018 PREOPERATIVE DIAGNOSIS: Renal failure. POSTOPERATIVE DIAGNOSIS: Renal failure. PROCEDURE CARRIED OUT: Snuffbox fistula, left wrist. SURGEON: Isak Ewing Jr., MD REFRIGERATOR REPAIRMAN: Rox Magaña DO ANESTHESIA ADMINISTERED BY: Mr. Juan CRNA INDICATIONS: The patient is an older middle-aged man with renal insufficiency, who will soon require dialysis. OPERATIVE FINDINGS: There is a very good vein and a decent branch of the radial artery. An end-to-side fistula using loupe magnification, heparin anticoagulation was carried out. DESCRIPTION OF PROCEDURE: The patient was given general anesthesia and intravenous antibiotics. Vein mapping was immediately carried out again directly at the wrist. A satisfactory vein was identified and a satisfactory artery. An end-to-side anastomosis using loupe magnification and heparin anticoagulation were carried out. After completion of the anastomosis and obtaining hemostasis, the wound was closed with 5-0 nylon sutures in multiple layers. Blood loss during the procedure was 10 mL. OPERATION CARRIED OUT: Snuffbox fistula, left wrist. Isak Ewing Jr., MD cc: MD Frankie Schmidt MD
== END 2018-09-22 12:33 | disposition home or self-care (01) ==
LOC: C.SDS 06:03
PROVIDERS: ATTEND Surgery Vascular Surgery
DX: I12.0 Hypertensive chronic kidney disease with stage 5 chronic kidney disease or end stage renal disease (principal); N18.6 End stage renal disease; E11.22 Type 2 diabetes mellitus with diabetic chronic kidney disease; K29.70 Gastritis, unspecified, without bleeding
CPT/HCPCS: 36415; 36821; 80048; 82948; J0690; J1644; J2250; J2405; J2704; J2710; J3010

== ENCOUNTER → 2019-01-10 | Outpatient (CLI) | payer MEDICARE | LOC: C.LAB 09:01 ==

== ENCOUNTER → 2019-01-10 | Outpatient (CLI) | payer MEDICARE | LOC: C.LAB 08:04 | DX: D64.9 Anemia, unspecified (principal); E11.9 Type 2 diabetes mellitus without complications; I10 Essential (primary) hypertension ==

== ENCOUNTER 2019-01-21 07:36 | Outpatient (CLI) | payer MEDICARE | END 2019-01-21 07:37 | disposition home or self-care (01) | LOC: C.CTH 07:36 ==

== ENCOUNTER 2019-03-18 08:07 | Outpatient (CLI) | payer MEDICARE | END 2019-03-18 08:08 | disposition home or self-care (01) | LOC: C.LAB 08:07 ==